=== PATIENT | female | born 1995 | race American Indian/Alaskan Native ===

== ENCOUNTER 2017-01-10 17:08 | Emergency (ER) | payer BC, OTHER ==
[2017-01-10] MEDS ORDERED: Silver Sulfadiazine 1% Crm 50 GM Tube TOP ONE (17:32)
[2017-01-10 17:33] VITALS: BP 138/73
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
== END 2017-01-10 18:25 | disposition home or self-care (01) ==
LOC: MW.ED 17:08
DX: L55.1 Sunburn of second degree (principal); E03.9 Hypothyroidism, unspecified; Z79.899 Other long term (current) drug therapy; Z98.890 Other specified postprocedural states
CPT/HCPCS: 99282; A9270

== ENCOUNTER 2017-04-04 19:31 | Inpatient (IN) | payer BC, OTHER ==
[2017-04-04] MEDS ORDERED: Nalbuphine 10 MG/1 ML Vial IVPUSH PRN (19:49)
[2017-04-04] MEDS ORDERED: Water For Irrigation,Sterile 1,000 ML Container IRR PRN (19:49)
[2017-04-04] MEDS ORDERED: Sodium Chloride 0.9% 2.5 ML Syringe FLUSH PRN (19:49)
[2017-04-04] MEDS ORDERED: Carboprost Tromethamine 250 MCG/1 ML Amp IM PRN (19:49)
[2017-04-04] MEDS ORDERED: Sodium Chloride 0.9% 10 ML Syringe FLUSH PRN (19:49)
[2017-04-04] MEDS ORDERED: Methylergonovine 0.2 MG/1 ML Amp IM PRN (19:49)
[2017-04-04] MEDS ORDERED: Terbutaline 1 MG/ML SDV SUBCUT PRN (19:49)
[2017-04-04] MEDS ORDERED: Misoprostol 200 MCG Tab PO PRN (19:49)
[2017-04-04] MEDS ORDERED: Lidocaine 1% 50 ML MDV INJECT PRN (19:49)
[2017-04-04] MEDS ORDERED: Oxytocin/Lactated Ringers 30 UNIT/500 ML BAG IV SCH ×2 (20:00)
[2017-04-04] MEDS: Lactated Ringers 1,000 ML IV SCH (20:28)
[2017-04-04] MEDS ORDERED: Misoprostol 25 MCG (1/4 of 100 MCG) Tab VAG SCH (20:30)
[2017-04-05] MEDS: Lactated Ringers 1,000 ML IV SCH (03:05)
[2017-04-05] MEDS: Misoprostol 25 MCG (1/4 of 100 MCG) Tab VAG SCH ×4 (03:31→23:01)
[2017-04-06] MEDS: Butorphanol 1 MG/ML SDV IVPUSH PRN ×2 (01:13→02:22)
--- NOTE | 2017-04-06 02:41 | PCM.PREANE ---
Preanesthetic Assessment - Anesthesia/Transfusion/Family Hx Anesthesia History: Prior Anesthesia Without Reaction Transfusion History: No Prior Transfusion(s) - Review of Systems General: No Symptoms Pulmonary: No Symptoms Cardiovascular: No Symptoms Gastrointestinal: No Symptoms Neurological: No Symptoms Other: Reports: None - Physical Assessment Pulse: 64 O2 Sat by Pulse Oximetry: 99 Respiratory Rate: 20 Blood Pressure: 128/73 Height: 5 ft 1 in Weight: 78.471 kg ASA Class: 2 Mental Status: Alert & Oriented x3 Airway Class: Mallampati = 2 Dentition: Reports: Normal Dentition Thyro-Mental Finger Breadths: 3 Mouth Opening Finger Breadths: 3 ROM/Head Extension: Full Lungs: Clear to Auscultation, Normal Respiratory Effort Cardiovascular: Regular Rate, Regular Rhythm - Lab Values: Laboratory Last Values WBC 12.35 K/uL (4.0-11.0) H 04/04/17 20:14 RBC 3.91 M/uL (4.30-5.90) L 04/04/17 20:14 Hgb 10.9 g/dL (12.0-16.0) L 04/04/17 20:14 Hct 33.2 % (36.0-46.0) L 04/04/17 20:14 MCV 84.9 fL (80.0-98.0) 04/04/17 20:14 MCH 27.9 pg (27.0-32.0) 04/04/17 20:14 MCHC 32.8 g/dL (31.0-37.0) 04/04/17 20:14 RDW Std Deviation 42.5 fl (28.0-62.0) 04/04/17 20:14 RDW Coeff of Mynor 14 % (11.0-15.0) 04/04/17 20:14 Plt Count 253 K/uL (150-400) 04/04/17 20:14 MPV 9.70 fL (7.40-12.00) 04/04/17 20:14 Nucleated RBC % 0.0 /100WBC 04/04/17 20:14 Nucleated RBCs # 0 K/uL 04/04/17 20:14 Blood Type A POSITIVE 04/04/17 20:14 Antibody Screen NEGATIVE 04/04/17 20:14 - Allergies Allergies/Adverse Reactions: Allergies Allergy/AdvReac Type Severity Reaction Status Date / Time No Known Allergies Allergy Verified 04/04/17 22:39 - Acknowledgements Anesthesia Type Planned: Epidural Pt an Appropriate Candidate for the Planned Anesthesia: Yes Alternatives and Risks of Anesthesia Discussed w Pt/Guardian: Yes Pt/Guardian Understands and Agrees with Anesthesia Plan: Yes PreAnesthesia Questionnaire HEENT 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: None Cardiovascular 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: None Respiratory 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: None Gastrointestinal 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: GERD Genitourinary 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: None [employer] 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: : 1 Para: 0 LMP (Approximate): Musculoskeletal 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: None Neurological 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: None Psychiatric 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: None Endocrine/Metabolic 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: Hypothyroidism, Obesity/BMI 30+ Hematologic 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: Anemia Immunologic 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: None Oncologic (Cancer) 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: None Dermatologic 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: None - Infectious Disease History Infectious Disease 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: None - Past Surgical History HEENT Surgical 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: Tonsillectomy, Other (See Below) Other HEENT Surgeries/Procedures: wisdom teeth removal Musculoskeletal Surgical 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: Other (See Below) Other Musculoskeletal Surgeries/Procedures:: ganglion cyst removal right wrist - SUBSTANCE USE Smoking Status *Q: Never Smoker Second Hand Smoke Exposure: No Days Per Week of Alcohol Use: 0 Recreational Drug Use History: No - HOME MEDS Home Medications: Home Meds Levothyroxine [Synthroid] 1 tab PO DAILY 08/12/14 [History] Vit #108/Iron/FA [ One Tablet] 1 tab PO DAILY 09/29/16 [History ] - CURRENT (IN HOUSE) MEDS Current Meds: Current Medications Butorphanol Tartrate (Stadol) 1 mg IVPUSH Q1H PRN PRN Reason: Pain Last Admin: 04/06/17 02:22 Dose: 1 mg Carboprost Tromethamine (Hemabate Ds) 250 mcg IM ASDIRECTED PRN PRN Reason: Post Hemorrhage Lactated Ringer's (Ringers, Lactated) 1,000 mls @ 150 mls/hr IV ASDIRECTED DAR Last Admin: 04/05/17 03:05 Dose: 150 mls/hr Oxytocin/Lactated Ringer's (Pitocin In Lr 30 Units/500 Ml) 30 unit in 500 mls @ 2 mls/hr IV TITRATE DAR; 2 MUNITS/MIN PRN Reason: Protocol Lidocaine HCl (Xylocaine 1%) 50 ml INJECT .ONCE PRN PRN Reason: Laceration repair Methylergonovine Maleate (Methergine) 0.2 mg IM ASDIRECTED PRN PRN Reason: Post Hemorrhage Misoprostol (Cytotec) 200 mcg PO .ONCE PRN PRN Reason: Post Hemorrhage Misoprostol (Cytotec) 25 mcg VAG .ONCE DAR Last Admin: 04/04/17 20:36 Dose: 25 mcg Misoprostol (Cytotec) 25 mcg VAG Q6H DAR Stop: 04/06/17 20:31 Last Admin: 04/05/17 23:01 Dose: 25 mcg Sodium Chloride (Saline Flush) 10 ml FLUSH ASDIRECTED PRN PRN Reason: Keep Vein Open Sodium Chloride (Saline Flush) 2.5 ml FLUSH ASDIRECTED PRN PRN Reason: Keep Vein Open Sterile Water (Sterile Water For Irrigation) 1,000 ml IRR ASDIRECTED PRN PRN Reason: delivery Terbutaline Sulfate (Brethine) 0.25 mg SUBCUT ASDIRECTED PRN PRN Reason: Tacysystole Discontinued Medications Oxytocin/Lactated Ringer's (Pitocin In Lr 30 Units/500 Ml) 30 unit in 500 mls @ 2 mls/hr IV TITRATE DAR; 2 MUNITS/MIN PRN Reason: Protocol Stop: 04/05/17 19:59 Nalbuphine HCl (Nubain) 10 mg IVPUSH Q1H PRN PRN Reason: Pain (severe 7-10) Stop: 04/04/17 21:50
[2017-04-06] MEDS: Lactated Ringers 1,000 ML IV SCH ×5 (02:45→17:13)
[2017-04-06] MEDS ORDERED: Ropivacaine HCl/PF 100 ML ONE ×3 (03:08→20:21)
[2017-04-06] MEDS ORDERED: fentaNYL 100 MCG/2 ML SDV ONE (03:08)
[2017-04-06] MEDS: Misoprostol 25 MCG (1/4 of 100 MCG) Tab VAG SCH (04:07)
[2017-04-06] MEDS: Ondansetron 4 MG/2 ML SDV IVPUSH PRN ×2 (10:52→15:34)
[2017-04-06] MEDS ORDERED: Ampicillin 2 GM in Sodium Chloride 0.9% 100 ML IV ONE (21:28)
[2017-04-06] MEDS ORDERED: Acetaminophen 500 MG Tab PO ONE (21:28)
[2017-04-06] MEDS ORDERED: Ampicillin 1 GM in Sodium Chloride 0.9% 50 ML IV SCH (21:30)
[2017-04-07] MEDS ORDERED: Lidocaine 2% 5 ML SDV ONE (01:20)
[2017-04-07] MEDS ORDERED: ceFAZolin 1 GM Vial ONE (01:22)
[2017-04-07] MEDS ORDERED: Citric Acid/Sodium Citrate Solution 30 ML Cup PO ONE (01:26)
[2017-04-07] MEDS ORDERED: Citric Acid/Sodium Citrate Solution 30 ML Cup ONE (01:31)
[2017-04-07] MEDS ORDERED: Oxytocin 10 Units/1 ML SDV ONE ×2 (01:51→02:25)
[2017-04-07] MEDS ORDERED: Ondansetron 4 MG/2 ML SDV ONE (01:52)
[2017-04-07] MEDS ORDERED: Morphine PF 10 MG/10 ML SDV ONE (01:59)
[2017-04-07] MEDS ORDERED: fentaNYL 100 MCG/2 ML SDV ONE (02:08)
[2017-04-07] MEDS ORDERED: Octyl 2-Cyanoacrylate 1 Tube ONE (02:17)
--- NOTE | 2017-04-07 02:37 | PCM.OPNOTE ---
- General Post-Op/Procedure Note Date of Surgery/Procedure: 04/07/17 Operative Procedure(s): primary low transverse Findings: Liveborn female weight 3180 grams, SAYDA, normal pelvis. Pre Op Diagnosis: 41 2/7 weeks, polyhydramnios, maternal fever, arrest of descent Post-Op Diagnosis: Same Anesthesia Technique: Epidural Primary Surgeon: Darlene Monroe Anesthesia Provider: Dario Gallegos [employer] Builder: Arron Gongora Pathology: placenta to pathology EBL in mLs: 600 Complications: None known Condition: Good
[2017-04-07] MEDS ORDERED: diphenhydrAMINE 50 MG/ML SDV IVPUSH PRN (02:42)
[2017-04-07] MEDS ORDERED: Ondansetron 4 MG/2 ML SDV IV PRN (02:42)
[2017-04-07] MEDS ORDERED: Bisacodyl 10 MG Supp RECTAL PRN (02:42)
[2017-04-07] MEDS ORDERED: Lanolin 100% Cream 7 GM Tube TOP PRN (02:42)
[2017-04-07] MEDS: Ketorolac 30 MG/ML SDV IVPUSH SCH ×4 (03:10→21:16)
--- NOTE | 2017-04-07 03:18 | PCM.POSTAN ---
POST ANESTHESIA ASSESSMENT - MENTAL STATUS Mental Status: Alert - RESPIRATORY Respiratory Status: Respiratory Rate WNL, Airway Patent, O2 Saturation Stable - CARDIOVASCULAR CV Status: Pulse Rate WNL, Blood Pressure Stable - GASTROINTESTINAL GI Status: No Symptoms - PAIN Pain Score: 5 (Pt states this is tolerable) - POST OP HYDRATION Hydration Status: Adequate & Stable
[2017-04-07] MEDS: Lactated Ringers 1,000 ML IV SCH ×2 (04:32→12:33)
[2017-04-07 05:46] LABS: CHLORIDE,CL 111 mmol/L (98-110); SODIUM,NA 137 mmol/L (136-146)
--- NOTE | 2017-04-07 05:48 | PCM48HPAN ---
Post Anesthesia Note - EVALUATION WITHIN 48HRS OF ANESTHETIC Vital Signs in Normal Range: Yes Patient Participated in Evaluation: Yes Respiratory Function Stable: Yes Airway Patent: Yes Cardiovascular Function Stable: Yes Hydration Status Stable: Yes Pain Control Satisfactory: Yes Nausea and Vomiting Control Satisfactory: Yes Mental Status Recovered: Yes - COMMENTS/OBSERVATIONS Free Text/Narrative:: Baby doing well.
--- NOTE | 2017-04-07 06:21 | OR ---
SURGEON: Darlene Monroe M.D. DATE OF PROCEDURE: 04-07-17 PREOPERATIVE DIAGNOSES: 1. A 41 and 1/7th week intrauterine . 2. Polyhydramnios. 3. Decreased movement. 4. Arrest of descent in the second stage of labor. 5. Maternal fever. POSTOPERATIVE DIAGNOSES: 1. A 41 and 1/7th week intrauterine . 2. Polyhydramnios. 3. Decreased movement. 4. Arrest of descent in the second stage of labor. PROCEDURES PERFORMED: Primary low transverse section. ANESTHESIA: Epidural. ESTIMATED BLOOD LOSS: 600 mL. FLUIDS: 2000 mL of crystalloid. FINDINGS: A live-born female with Apgars of one, three, and eight, weighing 3180 g. Placenta appeared normal. The fetus was in the left occiput anterior position at the time of delivery. The pelvis appeared normal. COMPLICATIONS: None known. DISPOSITION: Stable to Recovery. to [facility]. BRIEF HISTORY: This is a 21-year-old female. She is G1, P0. She presented to Clinic on 04/04/2017 with a complaint of decreased movement. She was, at that point, 40 and 6/7th weeks' gestation. She had polyhydramnios. She had had negative TORCH titers. She had had pyelectasis, the baby had had pyelectasis earlier in the , but it had subsequently resolved. Biophysical profile on 04/04/2017 was 10/10, but with polyhydramnios present due to the decreased movement, her post-dates state, and the polyhydramnios, decision was made to proceed with induction of labor. At that time, she was fingertip 30%, -2 station. She was admitted to Labor and Delivery. She had category 1 heart tones. She received multiple doses of Cytotec as well as balloon placement of the cervix. By the morning of 04/06/2017, she was 3 cm to 4 cm dilated. She had artificial rupture of membranes performed. She was started on Pitocin. Intrauterine pressure catheter and internal monitor were placed. Throughout the day, she had episodes of category 1 with episodes of category 2 heart tones, which resolved with discontinuing the Pitocin. The fetus tolerated the Pitocin well. Following this, by 6 p.m., she was 9 cm dilated. She had received an epidural for pain control. However, she had an episode of category 2 heart tones. Therefore, the Pitocin was discontinued, and re-started after 30 minutes of a category 1 strip. By 10 p.m., the cervix was reducible, and she was allowed to begin pushing. Shortly prior to this time, she had developed a fever of 101.6. She was started on ampicillin and gentamicin. Throughout pushing, she had category 1 heart tones alternating with category 2 heart tones. She had an episode of recurrent late decelerations. The Pitocin was discontinued and slowly re-started. heart tones were in the 150s with moderate variability. I discussed options for the patient, and at this point, she was at +2 and pushing to a +3 station in left occiput anterior position with category 1 heart tones with the Pitocin off. Option of continuing to push versus proceeding with delivery as she has pushed for a total of 3 hours were discussed with risks of delivery including bleeding, infection, injury to bowel or bladder or blood vessels or ureters or other organs, risk of thromboembolic event, and risks of anesthesia. Understanding all these risks, she did desire to proceed with a primary low transverse section. DESCRIPTION OF PROCEDURE: Upon arrival in the OR suite, heart tones were 150 with moderate variability With the patient in left tilt position under adequate epidural analgesia, the abdomen was prepped with chlorhexidine and draped in the usual fashion for abdominal surgery. SCDs were in place. Martinez catheter had been placed, and an appropriate time-out was held. As she had already received gentamicin and ampicillin, her second dose of ampicillin was given at the onset of , and her antibiotics will be continued postoperatively due to the fever. After appropriate time-out was held, documentation of adequate analgesia was performed over the incision site. A transverse curvilinear incision was made to the skin with a scalpel, and extended through the subcutaneous tissue to the fascia, which was scored transversely in the midline. The fascial incision was extended laterally using curved Alanis scissors. The fascia was elevated from the underlying rectus muscle using sharp and blunt dissection. The rectus muscles were bluntly in the midline. A finger was used to enter the peritoneal cavity. The incision was extended using blunt dissection. The Emerson O retractor was placed. The visceral peritoneum over the lower uterine segment was incised to develop an adequate bladder flap. A transverse curvilinear incision was made over the lower uterine segment. A finger was used to enter the amniotic cavity. Terminal meconium was noted. The head was delivered via the uterine incision, and with subsequent delivery, the infant's shoulders and body without any difficulty. The had poor tone at the time of delivery and no respiratory effort. Therefore, the cord was quickly clamped and cut, and handed to Dr. Snider, who was in attendance at delivery. The was a liveborn female with Apgars of one, three, and eight, weighing 3150 g. Cord blood was collected for cord ABGs as well as routine cord blood sampling. The placenta was removed by manual extraction. It was sent to Pathology. The uterus was cleaned with a dry laparotomy tape. The uterine incision was closed with a running lock suture of 0 Polysorb. The patient had significant peritoneal sensation. Therefore, I was unable to get aggressive fundal massage internally of the uterus. Tubes and ovaries did appear normal. After the uterine incision had been closed with a running lock suture followed by an imbricating layer, the uterine incision was inspected and was hemostatic. A single [id number] was placed in the midline for complete hemostasis. This being completed, the rectus muscle and peritoneum were loosely approximated in the midline using a running mattress suture of 0 Polysorb. The posterior aspect of the fascia was inspected, and areas of bleeding that were noted were cauterized. WOUND CLOSURE: The fascial incision was closed with a running suture of 0 Polysorb. Subcutaneous tissue was irrigated. Any areas of bleeding that were noted were cauterized. The skin was closed with a subcuticular suture of 3-0 Polysorb followed by skin glue. After the wound had been dressed, aggressive fundal massage and bimanual massage were performed with approximately 150 mL of clot expressed. Following this, the uterine fundus was firm. COUNT RESULTS: Final sponge, needle, and instrument counts were reported as correct. POSTOPERATIVE CONDITION: There were no known complications. The infant is in [facility] in good condition. Mother remains in Recovery in good condition. DILLON JEFFREY /[id number] NICOL
[2017-04-07] MEDS: Docusate Sodium 100 MG Cap PO SCH (10:11)
[2017-04-07] MEDS ORDERED: Lactated Ringers 500 ML IV ONE (12:30)
[2017-04-07] MEDS: Ampicillin 1 GM in Sodium Chloride 0.9% 50 ML IV SCH ×3 (14:26→22:01)
[2017-04-07] MEDS ORDERED: D5 1/2 NS w/ 20 mEq/L KCl 1,000 ML IV SCH (18:45)
[2017-04-08] MEDS: Ampicillin 1 GM in Sodium Chloride 0.9% 50 ML IV SCH (02:05)
[2017-04-08] MEDS: Ketorolac 30 MG/ML SDV IVPUSH SCH (03:01)
[2017-04-08 06:21] LABS: CHLORIDE,CL 112 mmol/L (98-110); SODIUM,NA 139 mmol/L (136-146)
--- NOTE | 2017-04-08 08:07 | PCM.PNPP ---
<Trina Adams - Last Filed: 04/08/17 08:13> - General Info Date of Service: 04/08/17 Functional Status: Reports: Pain Controlled, Tolerating Diet, Ambulating, Urinating - Review of Systems General: Denies: Fever, Weakness, Fatigue Pulmonary: Denies: Shortness of Breath, Pleuritic Chest Pain, Cough Cardiovascular: Denies: Chest Pain, Palpitations, Dyspnea on Exertion Gastrointestinal: Denies: Abdominal Pain Genitourinary: Denies: Dysuria Psychiatric: Reports: No Symptoms - General Info Date of Service: 04/08/17 - Patient Data Vital Signs - Most Recent: Last Vital Signs Temp 36.6 C 04/08/17 05:00 Pulse 118 H 04/08/17 05:00 Resp 16 04/08/17 05:00 BP 124/75 04/08/17 05:00 Pulse Ox 97 04/08/17 05:00 Weight - Most Recent: 78.471 kg I&O - Last 24 Hours: Intake & Output 04/07/17 04/08/17 04/08/17 22:59 06:59 14:59 Output Total 600 Balance -600 Lab Results - Last 24 Hours: Laboratory Results - last 24 hr 04/08/17 04/08/17 Range/Units 05:53 05:53 WBC 17.85 H (4.0-11.0) K/uL RBC 2.69 L (4.30-5.90) M/uL Hgb 7.6 L (12.0-16.0) g/dL Hct 22.6 L (36.0-46.0) % MCV 84.0 (80.0-98.0) fL MCH 28.3 (27.0-32.0) pg MCHC 33.6 (31.0-37.0) g/dL RDW Std Deviation 43.2 (28.0-62.0) fl RDW Coeff of Mynor 14 (11.0-15.0) % Plt Count 214 (150-400) K/uL MPV 9.10 (7.40-12.00) fL Neut % (Auto) 76.9 (48.0-80.0) % Lymph % (Auto) 13.8 L (16.0-40.0) % Dukes % (Auto) 8.5 (0.0-15.0) % Eos % (Auto) 0.7 (0.0-7.0) % Baso % (Auto) 0.1 (0.0-1.5) % Neut # (Auto) 13.7 H (1.4-5.7) K/uL Lymph # (Auto) 2.5 H (0.6-2.4) K/uL Dukes # (Auto) 1.5 H (0.0-0.8) K/uL Eos # (Auto) 0.1 (0.0-0.7) K/uL Baso # (Auto) 0.0 (0.0-0.1) K/uL Nucleated RBC % 0.0 /100WBC Nucleated RBCs # 0 K/uL Sodium 139 (136-146) mmol/L Potassium 3.8 (3.5-5.1) mmol/L Chloride 112 H (98-110) mmol/L Carbon Dioxide 20 L (21-31) mmol/L BUN 9 (6.0-23.0) mg/dL Creatinine 0.7 (0.6-1.5) mg/dL Est Cr Clr Drug Dosing 97.54 mL/min Estimated GFR (MDRD) > 60.0 ml/min Glucose 89 (60-110) mg/dL Calcium 7.8 L (8.8-10.8) mg/dL Med Orders - Current: Current Medications Bisacodyl (Dulcolax) 10 mg RECTAL .ONCE PRN PRN Reason: Constipation Diphenhydramine HCl (Benadryl) 25 mg IVPUSH Q6H PRN PRN Reason: Itching or Nausea Docusate Sodium (Colace) 100 mg PO BID [facility] Last Admin: 04/07/17 10:11 Dose: 100 mg Emollient Ointment (Lansinoh Hpa) 0 gm TOP ASDIRECTED PRN PRN Reason: Sore Nipples Last Admin: 04/08/17 00:32 Dose: 7 gm Lactated Ringer's (Ringers, Lactated) 1,000 mls @ 150 mls/hr IV ASDIRECTED [facility] Last Admin: 04/06/17 17:13 Dose: 999 mls/hr Lactated Ringer's (Ringers, Lactated) 1,000 mls @ 125 mls/hr IV ASDIRECTED [facility] Last Admin: 04/07/17 12:33 Dose: 125 mls/hr Potassium Chloride/Dextrose/Sod Cl (D5 1/2 Ns W/ 20 Meq/L Kcl) 1,000 mls @ 125 mls/hr IV ASDIRECTED [facility] Last Admin: 04/08/17 02:06 Dose: 125 mls/hr Ibuprofen (Motrin) 800 mg PO Q8H PRN PRN Reason: mild pain or fever Methylergonovine Maleate (Methergine) 0.2 mg IM ASDIRECTED PRN PRN Reason: Post Hemorrhage Misoprostol (Cytotec) 200 mcg PO .ONCE PRN PRN Reason: Post Hemorrhage Ondansetron HCl (Zofran) 4 mg IVPUSH Q4H PRN PRN Reason: Nausea Last Admin: 04/06/17 15:34 Dose: 4 mg Ondansetron HCl (Zofran) 4 mg IV Q4H PRN PRN Reason: Nausea/Vomiting Oxycodone/Acetaminophen (Percocet 325-5 Mg) 1 - 2 tab PO Q4H PRN PRN Reason: Pain (moderate 4-6) Discontinued Medications Acetaminophen (Tylenol Extra Strength) 1,000 mg PO ONETIME ONE Stop: 04/06/17 21:29 Last Admin: 04/06/17 21:40 Dose: 1,000 mg Butorphanol Tartrate (Stadol) 1 mg IVPUSH Q1H PRN PRN Reason: Pain Last Admin: 04/06/17 01:13 Dose: 1 mg Carboprost Tromethamine (Hemabate Ds) 250 mcg IM ASDIRECTED PRN PRN Reason: Post Hemorrhage Cefazolin Sodium (Ancef) Confirm Administered Dose 2 gm .ROUTE .STK-MED ONE Stop: 04/07/17 01:23 Citric Acid/Sodium Citrate (Bicitra Solution) 30 ml PO ONETIME ONE Stop: 04/07/17 01:27 Citric Acid/Sodium Citrate (Bicitra Solution) Confirm Administered Dose 30 ml .ROUTE .STK-MED ONE Stop: 04/07/17 01:32 Fentanyl (Sublimaze) Confirm Administered Dose 100 mcg .ROUTE .STK-MED ONE Stop: 04/06/17 03:09 Last Admin: 04/06/17 04:07 Dose: Not Given Fentanyl (Sublimaze) Confirm Administered Dose 100 mcg .ROUTE .STK-MED ONE Stop: 04/07/17 02:09 Oxytocin/Lactated Ringer's (Pitocin In Lr 30 Units/500 Ml) 30 unit in 500 mls @ 2 mls/hr IV TITRATE DAR; 2 MUNITS/MIN PRN Reason: Protocol Stop: 04/05/17 19:59 Oxytocin/Lactated Ringer's (Pitocin In Lr 30 Units/500 Ml) 30 unit in 500 mls @ 2 mls/hr IV TITRATE DAR; 2 MUNITS/MIN PRN Reason: Protocol Last Titration: 04/07/17 01:06 Dose: 0 munits/min, 0 mls/hr Ropivacaine (Naropin 0.2%) Confirm Administered Dose 100 mls @ as directed .ROUTE .[facility]-MED ONE Stop: 04/06/17 03:09 Last Admin: 04/06/17 04:07 Dose: Not Given Ropivacaine (Naropin 0.2%) Confirm Administered Dose 100 mls @ as directed .ROUTE .[facility] ONE Stop: 04/06/17 13:50 Ropivacaine (Naropin 0.2%) Confirm Administered Dose 100 mls @ as directed .ROUTE .[facility] ONE Stop: 04/06/17 20:22 Ampicillin Sodium 2 gm/ Sodium (Chloride) 100 mls @ 200 mls/hr IV ONETIME ONE Stop: 04/06/17 21:57 Last Admin: 04/06/17 21:50 Dose: 200 mls/hr Ampicillin Sodium 1 gm/ Sodium (Chloride) 50 mls @ 100 mls/hr IV Q4H [facility] Last Admin: 04/07/17 10:15 Dose: 100 mls/hr Gentamicin Sulfate 80 mg/ (Sodium Chloride) 52 mls @ 104 mls/hr IV Q8H [facility] Last Admin: 04/06/17 22:23 Dose: 104 mls/hr Ampicillin Sodium 1 gm/ Sodium (Chloride) 50 mls @ 100 mls/hr IV Q4H [facility] Stop: 04/08/17 02:00 Last Admin: 04/08/17 02:05 Dose: 100 mls/hr Gentamicin Sulfate 80 mg/ (Sodium Chloride) 52 mls @ 100 mls/hr IV Q8H [facility] Stop: 04/08/17 05:00 Last Admin: 04/08/17 05:06 Dose: 100 mls/hr Lactated Ringer's (Ringers, Lactated) 500 mls @ 999 mls/hr IV .[facility]OL[facility] ONE Stop: 04/07/17 13:00 Ketorolac Tromethamine (Toradol) 30 mg IVPUSH Q6H [facility] Stop: 04/08/17 02:46 Last Admin: 04/08/17 03:01 Dose: 30 mg Lidocaine (Xylocaine-Mpf 2%) Confirm Administered Dose 20 ml .ROUTE .STK-MED ONE Stop: 04/07/17 01:21 Lidocaine HCl (Xylocaine 1%) 50 ml INJECT .ONCE PRN PRN Reason: Laceration repair Misoprostol (Cytotec) 25 mcg VAG .ONCE DAR Last Admin: 04/04/17 20:36 Dose: 25 mcg Misoprostol (Cytotec) 25 mcg VAG Q6H [facility] Stop: 04/06/17 20:31 Last Admin: 04/06/17 04:07 Dose: Not Given Morphine Sulfate (Duramorph Pf) Confirm Administered Dose 10 mg .ROUTE .STK-MED ONE Stop: 04/07/17 02:00 Nalbuphine HCl (Nubain) 10 mg IVPUSH Q1H PRN PRN Reason: Pain (severe 7-10) Stop: 04/04/17 21:50 Octyl Cyanoacrylate (Dermabond Advance) Confirm Administered Dose 1 applic .ROUTE .STK-MED ONE Stop: 04/07/17 02:18 Ondansetron HCl (Zofran) Confirm Administered Dose 4 mg .ROUTE .STK-MED ONE Stop: 04/07/17 01:53 Oxytocin (Pitocin) Confirm Administered Dose 20 unit .ROUTE .STK-MED ONE Stop: 04/07/17 01:52 Oxytocin (Pitocin) Confirm Administered Dose 10 unit .ROUTE .STK-MED ONE Stop: 04/07/17 02:26 Sodium Chloride (Saline Flush) 10 ml FLUSH ASDIRECTED PRN PRN Reason: Keep Vein Open Sodium Chloride (Saline Flush) 2.5 ml FLUSH ASDIRECTED PRN PRN Reason: Keep Vein Open Sterile Water (Sterile Water For Irrigation) 1,000 ml IRR ASDIRECTED PRN PRN Reason: delivery Terbutaline Sulfate (Brethine) 0.25 mg SUBCUT ASDIRECTED PRN PRN Reason: Tacysystole - Infant Interaction Disposition, : [place] to Nursery Feeding: Attempted ; Nursed Fair/Poor Support Person: Mother, Significant Other - Recovery Exam Fundal Tone: Firm Fundal Level: At Umbilicus Fundal Placement: Midline Lochia Amount: Scant Lochia Color: Rubra/Red Perineum Description: Intact, Minimal Bruising/Swelling Episiotomy/Laceration: None Bladder Status: Voiding Urinary Elimination: Voided - Exam General: Alert, Oriented Neck: Supple Lungs: Clear to Auscultation, Normal Respiratory Effort Cardiovascular: Regular Rate, Regular Rhythm GI/Abdominal Exam: Normal Bowel Sounds, Soft, Non-Tender Psy/Mental Status: Alert - Problem List & Annotations (1) Vaginal delivery SNOMED Code(s): 962867456 Code(s): O80 - ENCOUNTER FOR FULL-TERM UNCOMPLICATED DELIVERY Status: Acute Current Visit: Yes - Problem List Review Problem List Initiated/Reviewed/Updated: Yes - Assessment Assessment:: POD #1 from PLT due to arrest of decent. Minimal pain and lochia. Currently on antibiotics for maternal fever. WBC has decreased from 24,660 to 17,850. Vital signs are stable. - Plan Plan:: Continue routine post-op cares. Encouraged to ambulate halls. Work on breast feeding today. Will start Iron supplementation for anemia. <Hue Mensah - Last Filed: 04/08/17 08:41> - Patient Data Vital Signs - Most Recent: Last Vital Signs Temp 36.6 C 04/08/17 05:00 Pulse 118 H 04/08/17 05:00 Resp 16 04/08/17 05:00 BP 124/75 04/08/17 05:00 Pulse Ox 97 04/08/17 05:00 I&O - Last 24 Hours: Intake & Output 04/07/17 04/08/17 04/08/17 22:59 06:59 14:59 Output Total 600 Balance -600 Lab Results - Last 24 Hours: Laboratory Results - last 24 hr 04/08/17 04/08/17 Range/Units 05:53 05:53 WBC 17.85 H (4.0-11.0) K/uL RBC 2.69 L (4.30-5.90) M/uL Hgb 7.6 L (12.0-16.0) g/dL Hct 22.6 L (36.0-46.0) % MCV 84.0 (80.0-98.0) fL MCH 28.3 (27.0-32.0) pg MCHC 33.6 (31.0-37.0) g/dL RDW Std Deviation 43.2 (28.0-62.0) fl RDW Coeff of Mynor 14 (11.0-15.0) % Plt Count 214 (150-400) K/uL MPV 9.10 (7.40-12.00) fL Neut % (Auto) 76.9 (48.0-80.0) % Lymph % (Auto) 13.8 L (16.0-40.0) % Dukes % (Auto) 8.5 (0.0-15.0) % Eos % (Auto) 0.7 (0.0-7.0) % Baso % (Auto) 0.1 (0.0-1.5) % Neut # (Auto) 13.7 H (1.4-5.7) K/uL Lymph # (Auto) 2.5 H (0.6-2.4) K/uL Dukes # (Auto) 1.5 H (0.0-0.8) K/uL Eos # (Auto) 0.1 (0.0-0.7) K/uL Baso # (Auto) 0.0 (0.0-0.1) K/uL Nucleated RBC % 0.0 /100WBC Nucleated RBCs # 0 K/uL Sodium 139 (136-146) mmol/L Potassium 3.8 (3.5-5.1) mmol/L Chloride 112 H (98-110) mmol/L Carbon Dioxide 20 L (21-31) mmol/L BUN 9 (6.0-23.0) mg/dL Creatinine 0.7 (0.6-1.5) mg/dL Est Cr Clr Drug Dosing 97.54 mL/min Estimated GFR (MDRD) > 60.0 ml/min Glucose 89 (60-110) mg/dL Calcium 7.8 L (8.8-10.8) mg/dL Med Orders - Current: Current Medications Bisacodyl (Dulcolax) 10 mg RECTAL .ONCE PRN PRN Reason: Constipation Diphenhydramine HCl (Benadryl) 25 mg IVPUSH Q6H PRN PRN Reason: Itching or Nausea Docusate Sodium (Colace) 100 mg PO BID [facility] Last Admin: 04/07/17 10:11 Dose: 100 mg Emollient Ointment (Lansinoh Hpa) 0 gm TOP ASDIRECTED PRN PRN Reason: Sore Nipples Last Admin: 04/08/17 00:32 Dose: 7 gm Lactated Ringer's (Ringers, Lactated) 1,000 mls @ 150 mls/hr IV ASDIRECTED [facility] Last Admin: 04/06/17 17:13 Dose: 999 mls/hr Lactated Ringer's (Ringers, Lactated) 1,000 mls @ 125 mls/hr IV ASDIRECTED [facility] Last Admin: 04/07/17 12:33 Dose: 125 mls/hr Potassium Chloride/Dextrose/Sod Cl (D5 1/2 Ns W/ 20 Meq/L Kcl) 1,000 mls @ 125 mls/hr IV ASDIRECTED [facility] Last Admin: 04/08/17 02:06 Dose: 125 mls/hr Ibuprofen (Motrin) 800 mg PO Q8H PRN PRN Reason: mild pain or fever Methylergonovine Maleate (Methergine) 0.2 mg IM ASDIRECTED PRN PRN Reason: Post Hemorrhage Misoprostol (Cytotec) 200 mcg PO .ONCE PRN PRN Reason: Post Hemorrhage Ondansetron HCl (Zofran) 4 mg IVPUSH Q4H PRN PRN Reason: Nausea Last Admin: 04/06/17 15:34 Dose: 4 mg Ondansetron HCl (Zofran) 4 mg IV Q4H PRN PRN Reason: Nausea/Vomiting Oxycodone/Acetaminophen (Percocet 325-5 Mg) 1 - 2 tab PO Q4H PRN PRN Reason: Pain (moderate 4-6) Discontinued Medications Acetaminophen (Tylenol Extra Strength) 1,000 mg PO ONETIME ONE Stop: 04/06/17 21:29 Last Admin: 04/06/17 21:40 Dose: 1,000 mg Butorphanol Tartrate (Stadol) 1 mg IVPUSH Q1H PRN PRN Reason: Pain Last Admin: 04/06/17 01:13 Dose: 1 mg Carboprost Tromethamine (Hemabate Ds) 250 mcg IM ASDIRECTED PRN PRN Reason: Post Hemorrhage Cefazolin Sodium (Ancef) Confirm Administered Dose 2 gm .ROUTE .STK-MED ONE Stop: 04/07/17 01:23 Citric Acid/Sodium Citrate (Bicitra Solution) 30 ml PO ONETIME ONE Stop: 04/07/17 01:27 Citric Acid/Sodium Citrate (Bicitra Solution) Confirm Administered Dose 30 ml .ROUTE .STK-MED ONE Stop: 04/07/17 01:32 Fentanyl (Sublimaze) Confirm Administered Dose 100 mcg .ROUTE .STK-MED ONE Stop: 04/06/17 03:09 Last Admin: 04/06/17 04:07 Dose: Not Given Fentanyl (Sublimaze) Confirm Administered Dose 100 mcg .ROUTE .ST-MED ONE Stop: 04/07/17 02:09 Oxytocin/Lactated Ringer's (Pitocin In Lr 30 Units/500 Ml) 30 unit in 500 mls @ 2 mls/hr IV TITRATE DAR; 2 MUNITS/MIN PRN Reason: Protocol Stop: 04/05/17 19:59 Oxytocin/Lactated Ringer's (Pitocin In Lr 30 Units/500 Ml) 30 unit in 500 mls @ 2 mls/hr IV TITRATE DAR; 2 MUNITS/MIN PRN Reason: Protocol Last Titration: 04/07/17 01:06 Dose: 0 munits/min, 0 mls/hr Ropivacaine (Naropin 0.2%) Confirm Administered Dose 100 mls @ as directed .ROUTE .ST-MED ONE Stop: 04/06/17 03:09 Last Admin: 04/06/17 04:07 Dose: Not Given Ropivacaine (Naropin 0.2%) Confirm Administered Dose 100 mls @ as directed .ROUTE .STK-MED ONE Stop: 04/06/17 13:50 Ropivacaine (Naropin 0.2%) Confirm Administered Dose 100 mls @ as directed .ROUTE .STK-MED ONE Stop: 04/06/17 20:22 Ampicillin Sodium 2 gm/ Sodium (Chloride) 100 mls @ 200 mls/hr IV ONETIME ONE Stop: 04/06/17 21:57 Last Admin: 04/06/17 21:50 Dose: 200 mls/hr Ampicillin Sodium 1 gm/ Sodium (Chloride) 50 mls @ 100 mls/hr IV Q4H [facility] Last Admin: 04/07/17 10:15 Dose: 100 mls/hr Gentamicin Sulfate 80 mg/ (Sodium Chloride) 52 mls @ 104 mls/hr IV Q8H [facility] Last Admin: 04/06/17 22:23 Dose: 104 mls/hr Ampicillin Sodium 1 gm/ Sodium (Chloride) 50 mls @ 100 mls/hr IV Q4H [facility] Stop: 04/08/17 02:00 Last Admin: 04/08/17 02:05 Dose: 100 mls/hr Gentamicin Sulfate 80 mg/ (Sodium Chloride) 52 mls @ 100 mls/hr IV Q8H [facility] Stop: 04/08/17 05:00 Last Admin: 04/08/17 05:06 Dose: 100 mls/hr Lactated Ringer's (Ringers, Lactated) 500 mls @ 999 mls/hr IV .[facility]OL[facility] ONE Stop: 04/07/17 13:00 Ketorolac Tromethamine (Toradol) 30 mg IVPUSH Q6H [facility] Stop: 04/08/17 02:46 Last Admin: 04/08/17 03:01 Dose: 30 mg Lidocaine (Xylocaine-Mpf 2%) Confirm Administered Dose 20 ml .ROUTE .STK-MED ONE Stop: 04/07/17 01:21 Lidocaine HCl (Xylocaine 1%) 50 ml INJECT .ONCE PRN PRN Reason: Laceration repair Misoprostol (Cytotec) 25 mcg VAG .ONCE [facility] Last Admin: 04/04/17 20:36 Dose: 25 mcg Misoprostol (Cytotec) 25 mcg VAG Q6H [facility] Stop: 04/06/17 20:31 Last Admin: 04/06/17 04:07 Dose: Not Given Morphine Sulfate (Duramorph Pf) Confirm Administered Dose 10 mg .ROUTE .STK-MED ONE Stop: 04/07/17 02:00 Nalbuphine HCl (Nubain) 10 mg IVPUSH Q1H PRN PRN Reason: Pain (severe 7-10) Stop: 04/04/17 21:50 Octyl Cyanoacrylate (Dermabond Advance) Confirm Administered Dose 1 applic .ROUTE .STK-MED ONE Stop: 04/07/17 02:18 Ondansetron HCl (Zofran) Confirm Administered Dose 4 mg .ROUTE .STK-MED ONE Stop: 04/07/17 01:53 Oxytocin (Pitocin) Confirm Administered Dose 20 unit .ROUTE .STK-MED ONE Stop: 04/07/17 01:52 Oxytocin (Pitocin) Confirm Administered Dose 10 unit .ROUTE .STK-MED ONE Stop: 04/07/17 02:26 Sodium Chloride (Saline Flush) 10 ml FLUSH ASDIRECTED PRN PRN Reason: Keep Vein Open Sodium Chloride (Saline Flush) 2.5 ml FLUSH ASDIRECTED PRN PRN Reason: Keep Vein Open Sterile Water (Sterile Water For Irrigation) 1,000 ml IRR ASDIRECTED PRN PRN Reason: delivery Terbutaline Sulfate (Brethine) 0.25 mg SUBCUT ASDIRECTED PRN PRN Reason: Tacysystole - My Orders Last 24 Hours: My Active Orders 04/07/17 18:45 D5 1/2 NS w/ 20 mEq/L KCl 1,000 ml IV ASDIRECTED - Plan Plan:: Patient seen and examined. Potassium is normalized today. Patient is afebrile. She is ambulating without orthostatic symptoms and has good urine output. She was anemic prior to surgery with hemoglobin 10.6 and seems to be tolerating well. Will continue to monitor. She agrees to ambulate halls today.
[2017-04-08] MEDS: Docusate Sodium 100 MG Cap PO SCH ×2 (09:20→21:00)
[2017-04-08] MEDS: Acetaminophen/oxyCODONE 325-5 MG Tab PO PRN ×3 (09:20→22:53)
[2017-04-08] MEDS: Ibuprofen 800 MG Tab PO PRN ×2 (09:59→17:18)
--- NOTE | 2017-04-08 21:24 | PCM.PN ---
- General Info Date of Service: 04/08/17 Admission Dx/Problem (Free Text): 21 yo now P1 s/p Primary Subjective Update: Patient seen at bedside , was informed that patient complained of passing a yellowish substance from the vagina Patient is s/p primary for arrest of dilatation, labor course complicated with Chorioamnionitis. last temp spike @ 04/06 38.7 was before delivery. patient was recieved antibiotics for 24hrs. Patient also noted to have a drop in H/H from 10.9/33.2 --> 7.7/22.6 . patient denies fatigue , dizziness , Shortness of breathe and palpation , denies headache RUQ pain BP ;- 120s-140s/ 60s- 70s Functional Status: Reports: Pain Controlled - Review of Systems General: Reports: No Symptoms HEENT: Reports: No Symptoms Pulmonary: Reports: No Symptoms Cardiovascular: Reports: No Symptoms Gastrointestinal: Reports: No Symptoms Genitourinary: Reports: No Symptoms Musculoskeletal: Reports: No Symptoms - Patient Data Vitals - Most Recent: Last Vital Signs Temp 36.5 C 04/08/17 21:13 Pulse 94 04/08/17 21:13 Resp 18 04/08/17 21:13 BP 152/76 H 04/08/17 21:13 Pulse Ox 100 04/08/17 21:13 Weight - Most Recent: 78.471 kg Lab Results Last 24 Hours: Laboratory Results - last 24 hr 04/08/17 04/08/17 Range/Units 05:53 05:53 WBC 17.85 H (4.0-11.0) K/uL RBC 2.69 L (4.30-5.90) M/uL Hgb 7.6 L (12.0-16.0) g/dL Hct 22.6 L (36.0-46.0) % MCV 84.0 (80.0-98.0) fL MCH 28.3 (27.0-32.0) pg MCHC 33.6 (31.0-37.0) g/dL RDW Std Deviation 43.2 (28.0-62.0) fl RDW Coeff of Mynor 14 (11.0-15.0) % Plt Count 214 (150-400) K/uL MPV 9.10 (7.40-12.00) fL Neut % (Auto) 76.9 (48.0-80.0) % Lymph % (Auto) 13.8 L (16.0-40.0) % [place] % (Auto) 8.5 (0.0-15.0) % Eos % (Auto) 0.7 (0.0-7.0) % Baso % (Auto) 0.1 (0.0-1.5) % Neut # (Auto) 13.7 H (1.4-5.7) K/uL Lymph # (Auto) 2.5 H (0.6-2.4) K/uL [place] # (Auto) 1.5 H (0.0-0.8) K/uL Eos # (Auto) 0.1 (0.0-0.7) K/uL Baso # (Auto) 0.0 (0.0-0.1) K/uL Nucleated RBC % 0.0 /100WBC Nucleated RBCs # 0 K/uL Sodium 139 (136-146) mmol/L Potassium 3.8 (3.5-5.1) mmol/L Chloride 112 H (98-110) mmol/L Carbon Dioxide 20 L (21-31) mmol/L BUN 9 (6.0-23.0) mg/dL Creatinine 0.7 (0.6-1.5) mg/dL Est Cr Clr Drug Dosing 97.54 mL/min Estimated GFR (MDRD) > 60.0 ml/min Glucose 89 (60-110) mg/dL Calcium 7.8 L (8.8-10.8) mg/dL Med Orders - Current: Current Medications Bisacodyl (Dulcolax) 10 mg RECTAL .ONCE PRN PRN Reason: Constipation Diphenhydramine HCl (Benadryl) 25 mg IVPUSH Q6H PRN PRN Reason: Itching or Nausea Docusate Sodium (Colace) 100 mg PO BID [facility] Last Admin: 04/08/17 21:00 Dose: 100 mg Emollient Ointment (Lansinoh Hpa) 0 gm TOP ASDIRECTED PRN PRN Reason: Sore Nipples Last Admin: 04/08/17 00:32 Dose: 7 gm Lactated Ringer's (Ringers, Lactated) 1,000 mls @ 150 mls/hr IV ASDIRECTED [facility] Last Admin: 04/06/17 17:13 Dose: 999 mls/hr Lactated Ringer's (Ringers, Lactated) 1,000 mls @ 125 mls/hr IV ASDIRECTED [facility] Last Admin: 04/07/17 12:33 Dose: 125 mls/hr Potassium Chloride/Dextrose/Sod Cl (D5 1/2 Ns W/ 20 Meq/L Kcl) 1,000 mls @ 125 mls/hr IV ASDIRECTED [facility] Last Admin: 04/08/17 02:06 Dose: 125 mls/hr Ibuprofen (Motrin) 800 mg PO Q8H PRN PRN Reason: mild pain or fever Last Admin: 04/08/17 17:18 Dose: 800 mg Methylergonovine Maleate (Methergine) 0.2 mg IM ASDIRECTED PRN PRN Reason: Post Hemorrhage Misoprostol (Cytotec) 200 mcg PO .ONCE PRN PRN Reason: Post Hemorrhage Ondansetron HCl (Zofran) 4 mg IVPUSH Q4H PRN PRN Reason: Nausea Last Admin: 04/06/17 15:34 Dose: 4 mg Ondansetron HCl (Zofran) 4 mg IV Q4H PRN PRN Reason: Nausea/Vomiting Oxycodone/Acetaminophen (Percocet 325-5 Mg) 1 - 2 tab PO Q4H PRN PRN Reason: Pain (moderate 4-6) Last Admin: 04/08/17 14:43 Dose: 2 tab Discontinued Medications Acetaminophen (Tylenol Extra Strength) 1,000 mg PO ONETIME ONE Stop: 04/06/17 21:29 Last Admin: 04/06/17 21:40 Dose: 1,000 mg Butorphanol Tartrate (Stadol) 1 mg IVPUSH Q1H PRN PRN Reason: Pain Last Admin: 04/06/17 01:13 Dose: 1 mg Carboprost Tromethamine (Hemabate Ds) 250 mcg IM ASDIRECTED PRN PRN Reason: Post Hemorrhage Cefazolin Sodium (Ancef) Confirm Administered Dose 2 gm .ROUTE .STK-MED ONE Stop: 04/07/17 01:23 Citric Acid/Sodium Citrate (Bicitra Solution) 30 ml PO ONETIME ONE Stop: 04/07/17 01:27 Citric Acid/Sodium Citrate (Bicitra Solution) Confirm Administered Dose 30 ml .ROUTE .[facility] ONE Stop: 04/07/17 01:32 Last Admin: 04/08/17 17:24 Dose: Not Given Fentanyl (Sublimaze) Confirm Administered Dose 100 mcg .ROUTE .[facility] ONE Stop: 04/06/17 03:09 Last Admin: 04/06/17 04:07 Dose: Not Given Fentanyl (Sublimaze) Confirm Administered Dose 100 mcg .ROUTE .[facility] ONE Stop: 04/07/17 02:09 Oxytocin/Lactated Ringer's (Pitocin In Lr 30 Units/500 Ml) 30 unit in 500 mls @ 2 mls/hr IV TITRATE DAR; 2 MUNITS/MIN PRN Reason: Protocol Stop: 04/05/17 19:59 Oxytocin/Lactated Ringer's (Pitocin In Lr 30 Units/500 Ml) 30 unit in 500 mls @ 2 mls/hr IV TITRATE DAR; 2 MUNITS/MIN PRN Reason: Protocol Last Titration: 04/07/17 01:06 Dose: 0 munits/min, 0 mls/hr Ropivacaine (Naropin 0.2%) Confirm Administered Dose 100 mls @ as directed .ROUTE .[facility] ONE Stop: 04/06/17 03:09 Last Admin: 04/06/17 04:07 Dose: Not Given Ropivacaine (Naropin 0.2%) Confirm Administered Dose 100 mls @ as directed .ROUTE .[facility] ONE Stop: 04/06/17 13:50 Ropivacaine (Naropin 0.2%) Confirm Administered Dose 100 mls @ as directed .ROUTE .[facility] ONE Stop: 04/06/17 20:22 Ampicillin Sodium 2 gm/ Sodium (Chloride) 100 mls @ 200 mls/hr IV ONETIME ONE Stop: 04/06/17 21:57 Last Admin: 04/06/17 21:50 Dose: 200 mls/hr Ampicillin Sodium 1 gm/ Sodium (Chloride) 50 mls @ 100 mls/hr IV Q4H [facility] Last Admin: 04/07/17 10:15 Dose: 100 mls/hr Gentamicin Sulfate 80 mg/ (Sodium Chloride) 52 mls @ 104 mls/hr IV Q8H [facility] Last Admin: 04/06/17 22:23 Dose: 104 mls/hr Ampicillin Sodium 1 gm/ Sodium (Chloride) 50 mls @ 100 mls/hr IV Q4H [facility] Stop: 04/08/17 02:00 Last Admin: 04/08/17 02:05 Dose: 100 mls/hr Gentamicin Sulfate 80 mg/ (Sodium Chloride) 52 mls @ 100 mls/hr IV Q8H [facility] Stop: 04/08/17 05:00 Last Admin: 04/08/17 05:06 Dose: 100 mls/hr Lactated Ringer's (Ringers, Lactated) 500 mls @ 999 mls/hr IV .BOLUS ONE Stop: 04/07/17 13:00 Last Admin: 04/08/17 17:29 Dose: Not Given Ketorolac Tromethamine (Toradol) 30 mg IVPUSH Q6H [facility] Stop: 04/08/17 02:46 Last Admin: 04/08/17 03:01 Dose: 30 mg Lidocaine (Xylocaine-Mpf 2%) Confirm Administered Dose 20 ml .ROUTE .STK-MED ONE Stop: 04/07/17 01:21 Lidocaine HCl (Xylocaine 1%) 50 ml INJECT .ONCE PRN PRN Reason: Laceration repair Misoprostol (Cytotec) 25 mcg VAG .ONCE DAR Last Admin: 04/04/17 20:36 Dose: 25 mcg Misoprostol (Cytotec) 25 mcg VAG Q6H [facility] Stop: 04/06/17 20:31 Last Admin: 04/06/17 04:07 Dose: Not Given Morphine Sulfate (Duramorph Pf) Confirm Administered Dose 10 mg .ROUTE .STK-MED ONE Stop: 04/07/17 02:00 Nalbuphine HCl (Nubain) 10 mg IVPUSH Q1H PRN PRN Reason: Pain (severe 7-10) Stop: 04/04/17 21:50 Octyl Cyanoacrylate (Dermabond Advance) Confirm Administered Dose 1 applic .ROUTE .STK-MED ONE Stop: 04/07/17 02:18 Ondansetron HCl (Zofran) Confirm Administered Dose 4 mg .ROUTE .STK-MED ONE Stop: 04/07/17 01:53 Oxytocin (Pitocin) Confirm Administered Dose 20 unit .ROUTE .STK-MED ONE Stop: 04/07/17 01:52 Oxytocin (Pitocin) Confirm Administered Dose 10 unit .ROUTE .STK-MED ONE Stop: 04/07/17 02:26 Sodium Chloride (Saline Flush) 10 ml FLUSH ASDIRECTED PRN PRN Reason: Keep Vein Open Sodium Chloride (Saline Flush) 2.5 ml FLUSH ASDIRECTED PRN PRN Reason: Keep Vein Open Sterile Water (Sterile Water For Irrigation) 1,000 ml IRR ASDIRECTED PRN PRN Reason: delivery Terbutaline Sulfate (Brethine) 0.25 mg SUBCUT ASDIRECTED PRN PRN Reason: Tacysystole - Exam General: Alert Lungs: Clear to Auscultation Cardiovascular: Regular Rate, Regular Rhythm GI/Abdominal Exam: Normal Bowel Sounds, Soft, Other (Pfannestiel skin incision c /d/i , Uterus is 18 week well contracted , non tender , minimal lochia ) - Problem List Review Problem List Initiated/Reviewed/Updated: Yes - Assessment Assessment:: POD #1 from [facility] due to arrest of decent. Minimal pain and lochia. Currently on antibiotics for maternal fever. WBC has decreased from 24,660 to 17,850. Vital signs are stable. - Plan Plan:: Continue regular diet Ambulation Pain control Will transfuse if patient has symptoms
[2017-04-09] MEDS: Ibuprofen 800 MG Tab PO PRN (04:20)
[2017-04-09 04:21] VITALS: BP 138/90
[2017-04-09] MEDS: Docusate Sodium 100 MG Cap PO SCH (09:46)
[2017-04-09] MEDS: Acetaminophen/oxyCODONE 325-5 MG Tab PO PRN (09:46)
--- NOTE | 2017-04-09 10:02 | PCM.PNPP ---
- General Info Date of Service: 04/09/17 Admission Dx/Problem (Free Text): 21 yo now P1 s/p Primary POD2 Subjective Update: Patient seen at bedside , denies any problems , she is ambulating, voiding tolerating regular diet. She has good pain control, denies dizzness , shortness of breathe or fatigue. Functional Status: Reports: Pain Controlled, Tolerating Diet, Ambulating, Urinating - Review of Systems General: Reports: No Symptoms HEENT: Reports: No Symptoms Pulmonary: Reports: No Symptoms Cardiovascular: Reports: No Symptoms Gastrointestinal: Reports: No Symptoms Genitourinary: Reports: No Symptoms Musculoskeletal: Reports: No Symptoms Skin: Reports: No Symptoms Neurological: Reports: No Symptoms Psychiatric: Reports: No Symptoms - General Info Date of Service: 04/09/17 - Patient Data Vital Signs - Most Recent: Last Vital Signs Temp 36.7 C 04/09/17 04:20 Pulse 93 04/09/17 04:20 Resp 16 04/09/17 04:20 BP 138/90 04/09/17 04:20 Pulse Ox 98 04/09/17 04:20 Weight - Most Recent: 78.471 kg Med Orders - Current: Current Medications Bisacodyl (Dulcolax) 10 mg RECTAL .ONCE PRN PRN Reason: Constipation Diphenhydramine HCl (Benadryl) 25 mg IVPUSH Q6H PRN PRN Reason: Itching or Nausea Docusate Sodium (Colace) 100 mg PO BID [facility] Last Admin: 04/09/17 09:46 Dose: 100 mg Emollient Ointment (Lansinoh Hpa) 0 gm TOP ASDIRECTED PRN PRN Reason: Sore Nipples Last Admin: 04/08/17 00:32 Dose: 7 gm Lactated Ringer's (Ringers, Lactated) 1,000 mls @ 150 mls/hr IV ASDIRECTED [facility] Last Admin: 04/06/17 17:13 Dose: 999 mls/hr Lactated Ringer's (Ringers, Lactated) 1,000 mls @ 125 mls/hr IV ASDIRECTED [facility] Last Admin: 04/07/17 12:33 Dose: 125 mls/hr Potassium Chloride/Dextrose/Sod Cl (D5 1/2 Ns W/ 20 Meq/L Kcl) 1,000 mls @ 125 mls/hr IV ASDIRECTED [facility] Last Admin: 04/08/17 02:06 Dose: 125 mls/hr Ibuprofen (Motrin) 800 mg PO Q8H PRN PRN Reason: mild pain or fever Last Admin: 04/09/17 04:20 Dose: 800 mg Methylergonovine Maleate (Methergine) 0.2 mg IM ASDIRECTED PRN PRN Reason: Post Hemorrhage Misoprostol (Cytotec) 200 mcg PO .ONCE PRN PRN Reason: Post Hemorrhage Ondansetron HCl (Zofran) 4 mg IVPUSH Q4H PRN PRN Reason: Nausea Last Admin: 04/06/17 15:34 Dose: 4 mg Ondansetron HCl (Zofran) 4 mg IV Q4H PRN PRN Reason: Nausea/Vomiting Oxycodone/Acetaminophen (Percocet 325-5 Mg) 1 - 2 tab PO Q4H PRN PRN Reason: Pain (moderate 4-6) Last Admin: 04/09/17 09:46 Dose: 2 tab Discontinued Medications Acetaminophen (Tylenol Extra Strength) 1,000 mg PO ONETIME ONE Stop: 04/06/17 21:29 Last Admin: 04/06/17 21:40 Dose: 1,000 mg Butorphanol Tartrate (Stadol) 1 mg IVPUSH Q1H PRN PRN Reason: Pain Last Admin: 04/06/17 01:13 Dose: 1 mg Carboprost Tromethamine (Hemabate Ds) 250 mcg IM ASDIRECTED PRN PRN Reason: Post Hemorrhage Cefazolin Sodium (Ancef) Confirm Administered Dose 2 gm .ROUTE .STK-MED ONE Stop: 04/07/17 01:23 Citric Acid/Sodium Citrate (Bicitra Solution) 30 ml PO ONETIME ONE Stop: 04/07/17 01:27 Citric Acid/Sodium Citrate (Bicitra Solution) Confirm Administered Dose 30 ml .ROUTE .STK-MED ONE Stop: 04/07/17 01:32 Last Admin: 04/08/17 17:24 Dose: Not Given Fentanyl (Sublimaze) Confirm Administered Dose 100 mcg .ROUTE .STK-MED ONE Stop: 04/06/17 03:09 Last Admin: 04/06/17 04:07 Dose: Not Given Fentanyl (Sublimaze) Confirm Administered Dose 100 mcg .ROUTE .STK-MED ONE Stop: 04/07/17 02:09 Oxytocin/Lactated Ringer's (Pitocin In Lr 30 Units/500 Ml) 30 unit in 500 mls @ 2 mls/hr IV TITRATE DAR; 2 MUNITS/MIN PRN Reason: Protocol Stop: 04/05/17 19:59 Oxytocin/Lactated Ringer's (Pitocin In Lr 30 Units/500 Ml) 30 unit in 500 mls @ 2 mls/hr IV TITRATE DAR; 2 MUNITS/MIN PRN Reason: Protocol Last Titration: 04/07/17 01:06 Dose: 0 munits/min, 0 mls/hr Ropivacaine (Naropin 0.2%) Confirm Administered Dose 100 mls @ as directed .ROUTE .[facility] ONE Stop: 04/06/17 03:09 Last Admin: 04/06/17 04:07 Dose: Not Given Ropivacaine (Naropin 0.2%) Confirm Administered Dose 100 mls @ as directed .ROUTE .[facility] ONE Stop: 04/06/17 13:50 Ropivacaine (Naropin 0.2%) Confirm Administered Dose 100 mls @ as directed .ROUTE .[facility] ONE Stop: 04/06/17 20:22 Ampicillin Sodium 2 gm/ Sodium (Chloride) 100 mls @ 200 mls/hr IV ONETIME ONE Stop: 04/06/17 21:57 Last Admin: 04/06/17 21:50 Dose: 200 mls/hr Ampicillin Sodium 1 gm/ Sodium (Chloride) 50 mls @ 100 mls/hr IV Q4H [facility] Last Admin: 04/07/17 10:15 Dose: 100 mls/hr Gentamicin Sulfate 80 mg/ (Sodium Chloride) 52 mls @ 104 mls/hr IV Q8H [facility] Last Admin: 04/06/17 22:23 Dose: 104 mls/hr Ampicillin Sodium 1 gm/ Sodium (Chloride) 50 mls @ 100 mls/hr IV Q4H [facility] Stop: 04/08/17 02:00 Last Admin: 04/08/17 02:05 Dose: 100 mls/hr Gentamicin Sulfate 80 mg/ (Sodium Chloride) 52 mls @ 100 mls/hr IV Q8H [facility] Stop: 04/08/17 05:00 Last Admin: 04/08/17 05:06 Dose: 100 mls/hr Lactated Ringer's (Ringers, Lactated) 500 mls @ 999 mls/hr IV .[facility]OL[facility] ONE Stop: 04/07/17 13:00 Last Admin: 04/08/17 17:29 Dose: Not Given Ketorolac Tromethamine (Toradol) 30 mg IVPUSH Q6H [facility] Stop: 04/08/17 02:46 Last Admin: 04/08/17 03:01 Dose: 30 mg Lidocaine (Xylocaine-Mpf 2%) Confirm Administered Dose 20 ml .ROUTE .STK-MED ONE Stop: 04/07/17 01:21 Lidocaine HCl (Xylocaine 1%) 50 ml INJECT .ONCE PRN PRN Reason: Laceration repair Misoprostol (Cytotec) 25 mcg VAG .ONCE DAR Last Admin: 04/04/17 20:36 Dose: 25 mcg Misoprostol (Cytotec) 25 mcg VAG Q6H [facility] Stop: 04/06/17 20:31 Last Admin: 04/06/17 04:07 Dose: Not Given Morphine Sulfate (Duramorph Pf) Confirm Administered Dose 10 mg .ROUTE .STK-MED ONE Stop: 04/07/17 02:00 Nalbuphine HCl (Nubain) 10 mg IVPUSH Q1H PRN PRN Reason: Pain (severe 7-10) Stop: 04/04/17 21:50 Octyl Cyanoacrylate (Dermabond Advance) Confirm Administered Dose 1 applic .ROUTE .STK-MED ONE Stop: 04/07/17 02:18 Ondansetron HCl (Zofran) Confirm Administered Dose 4 mg .ROUTE .STK-MED ONE Stop: 04/07/17 01:53 Oxytocin (Pitocin) Confirm Administered Dose 20 unit .ROUTE .STK-MED ONE Stop: 04/07/17 01:52 Oxytocin (Pitocin) Confirm Administered Dose 10 unit .ROUTE .STK-MED ONE Stop: 04/07/17 02:26 Sodium Chloride (Saline Flush) 10 ml FLUSH ASDIRECTED PRN PRN Reason: Keep Vein Open Sodium Chloride (Saline Flush) 2.5 ml FLUSH ASDIRECTED PRN PRN Reason: Keep Vein Open Sterile Water (Sterile Water For Irrigation) 1,000 ml IRR ASDIRECTED PRN PRN Reason: delivery Terbutaline Sulfate (Brethine) 0.25 mg SUBCUT ASDIRECTED PRN PRN Reason: Tacysystole - Infant Interaction Disposition, : to Nursery Feeding: Attempted ; Nursed Fair/Poor Support Person: Mother, Significant Other - Recovery Exam Fundal Tone: Firm Fundal Level: 1 Fingerbreadths Below Umbilicus Fundal Placement: Midline Lochia Amount: Scant Lochia Color: Rubra/Red Perineum Description: Intact, Minimal Bruising/Swelling Episiotomy/Laceration: None Bladder Status: Voiding Urinary Elimination: Voided - Exam General: Alert, Oriented Lungs: Clear to Auscultation Cardiovascular: Regular Rate, Regular Rhythm GI/Abdominal Exam: Normal Bowel Sounds, Other (Pfannestiel skin incision well approximated c/d/i ) Psy/Mental Status: Alert, Normal Affect - Problem List & Annotations (1) delivery delivered SNOMED Code(s): 531778071 Code(s): O82 - ENCOUNTER FOR DELIVERY WITHOUT INDICATION Status: Acute Priority: Low Current Visit: Yes Onset Date: ~04/07/17 (2) delivery delivered SNOMED Code(s): 768918669 Code(s): O82 - ENCOUNTER FOR DELIVERY WITHOUT INDICATION Status: Acute Priority: Low Current Visit: Yes - Problem List Review Problem List Initiated/Reviewed/Updated: Yes - Assessment Assessment:: POD #2 from [facility] due to arrest of decent. also with chorioamnionitis stable, afebrile, anemia ( asymptomatic) - Plan Plan:: Discharge home today Continue regular diet Ambulation Pain control Follow up in 2 weeks for wound check and 6 weeks for PP visit
== END 2017-04-09 12:45 | disposition home or self-care (01) | DRG 540 ==
LOC: MW.OBCHECK 19:31 → MW.OB 19:34 → MW.OBCHECK 19:49 → MW.OB 04-07 01:54 → OBSVTOIN 04-07 01:54
PROVIDERS: ADMIT Obstetrics & Gynecology; ATTEND Obstetrics & Gynecology
PROC: 10D00Z1 Extraction of Products of Conception, Low, Open Approach (ICD-10-PCS; principal; 2017-04-07)
PROC: 3E0P7GC Introduction of Other Therapeutic Substance into Female Reproductive, Via Natural or Artificial Opening (ICD-10-PCS; 2017-04-07)
PROC: 10907ZC Drainage of Amniotic Fluid, Therapeutic from Products of Conception, Via Natural or Artificial Opening (ICD-10-PCS; 2017-04-07)
DX: O36.8130 Decreased fetal movements, third trimester, not applicable or unspecified (principal); O40.3XX0 Polyhydramnios, third trimester, not applicable or unspecified; O62.1 Secondary uterine inertia; O75.2 Pyrexia during labor, not elsewhere classified; O41.1230 Chorioamnionitis, third trimester, not applicable or unspecified; Z3A.40 40 weeks gestation of pregnancy; Z37.0 Single live birth
CPT/HCPCS: 01967; 01968; 36415; 59025; 80048; 85025; 85027; 86850; 86900; 86901; 88307; A9270-GY; J0290; J0595; J0690; J1580; J1885; J2270; J2405; J2590; J3010; J3480; J7030; J7050; J7120

== ENCOUNTER 2017-04-10 15:15 | Emergency (ER) | payer BC, OTHER ==
--- NOTE | 2017-04-10 15:33 | EDM.PDOC ---
ED HPI GENERAL MEDICAL PROBLEM - General Chief Complaint: Respiratory Problem Stated Complaint: UNK Time Seen by Provider: 04/10/17 15:15 Source of Information: Reports: Patient History Limitations: Reports: No Limitations - History of Present Illness INITIAL COMMENTS - FREE TEXT/NARRATIVE: HISTORY AND PHYSICAL: History of present illness: [Patient comes to the emergency room via EMS. She complains of pain with inspiration and a "funny feeling" in her chest. Symptoms were mild last evening and have gradually worsened today. She complains of pain to her mid upper thoracic back with taking a deep breath. She's had some pain across her left chest that radiated into her neck and into her mid back. Symptoms come and go and are not constant. She's had no dizziness or fainting. No fever chills. She had a on April 07 and was discharged home yesterday morning. She took one tablet of Tylenol this morning. This did not improve her discomfort. Krzysztof first responders gave her 4 baby aspirin prior to EMS arrival. LC1] Review of systems: As per history of present illness and below otherwise all systems reviewed and negative. Past medical history: As per history of present illness and as reviewed below otherwise noncontributory. Surgical history: As per history of present illness and as reviewed below otherwise noncontributory. Social history: No reported history of drug or alcohol abuse. Family history: As per history of present illness and as reviewed below otherwise noncontributory. Physical exam: General: Well developed well nourished female in no acute distress. Resting comfortably in bed. HEENT: Atraumatic, normocephalic. Oral mucous membranes moist and pink. Neck supple, no lymphadenopathy. Lungs: Clear to auscultation, breath sounds equal bilaterally. No wheezing crackles or rales. Heart: S1S2, regular rate and rhythm. Abdomen: Soft, nondistended, nontender. Consistent w/ 2 days post . Pelvis: Stable nontender. Genitourinary: Deferred. Rectal: Deferred. Extremities: Atraumatic, negative for cords or calf pain. Mild swelling but no cyanosis appreciated. Neurovascular unremarkable. Neuro: Awake, alert, oriented. Motor and sensory unremarkable throughout. Exam nonfocal. Diagnostics: [CBC, CMP, UA w/ micro, troponin, EKG, CTA chest] Impression: [Shortness of breath 2 days , ] Plan: [Discussed w/ patient that CT scan is negative for PE. Recommend incentive spirometry every 1-2 hours. Rest, use support system, get plenty of fluids, follow up with PCP and OB in the 3-4 days. Strict return precautions are reviewed with patient. She is in agreement with today's plan. ] Definitive disposition and diagnosis as appropriate pending reevaluation and review of above. Mid Upper Back Pain Score (Numeric/FACES): 3 - Related Data Allergies Allergy/AdvReac Type Severity Reaction Status Date / Time No Known Allergies Allergy Verified 04/10/17 15:23 Home Meds: Home Meds Levothyroxine [Synthroid] 1 tab PO DAILY 08/12/14 [History] Vit #108/Iron/FA [ One Tablet] 1 tab PO DAILY 09/29/16 [History ] oxyCODONE HCl/Acetaminophen [Percocet 5-325 mg Tablet] 1 each PO Q4HR 04/10/17 [ History] Past Medical History HEENT 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: None Cardiovascular 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: None Respiratory 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: None Gastrointestinal 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: GERD Genitourinary 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: None 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: Musculoskeletal 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: None Neurological 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: None Psychiatric 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: None Endocrine/Metabolic 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: Hypothyroidism, Obesity/BMI 30+ Hematologic 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: Anemia Immunologic 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: None Oncologic (Cancer) 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: None Dermatologic 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: None - Infectious Disease History Infectious Disease 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: None - Past Surgical History HEENT Surgical 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: Tonsillectomy, Other (See Below) Other HEENT Surgeries/Procedures: wisdom teeth removal Musculoskeletal Surgical 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: Other (See Below) Other Musculoskeletal Surgeries/Procedures:: ganglion cyst removal right wrist Social & Family History - Family History Family Medical History: Noncontributory Cardiac: Reports: Afib, Hypertension, Stent Respiratory: Reports: Asthma : Reports: Renal Disease/Insufficiency OBGYN: Reports: Musculoskeletal: Reports: RA Endocrine/Metabolic: Reports: Diabetes, Type I, Hypothyroidism, Other (See Below ) Other Endocrine/Metabolic Family History: Hoshimoto Oncologic: Reports: Pancreatic - Tobacco Use Smoking Status *Q: Never Smoker Second Hand Smoke Exposure: No - Caffeine Use Caffeine Use: Reports: None - Alcohol Use Days Per Week of Alcohol Use: 0 - Recreational Drug Use Recreational Drug Use: No ED ROS GENERAL - Review of Systems Review Of Systems: ROS reveals no pertinent complaints other than HPI. ED EXAM, GENERAL - Physical Exam Exam: See Below Course - Vital Signs Last Recorded V/S: Last Vital Signs Temp 97.4 F 04/10/17 15:24 Pulse 72 04/10/17 15:24 Resp 18 04/10/17 15:24 BP 156/92 H 04/10/17 15:24 Pulse Ox 98 04/10/17 15:24 - Orders/Labs/Meds Orders: Active Orders 24 hr Category Date Time Status EKG Documentation Completion [RC] STAT Care 04/10/17 15:22 Active CTA Chest W WO Contrast [Ang Chest] [CT] Stat Exams 04/10/17 15:22 Taken Labs: Laboratory Tests 04/10/17 04/10/17 04/10/17 Range/Units 15:30 15:30 15:30 WBC 10.07 (4.0-11.0) K/uL RBC 2.54 L (4.30-5.90) M/uL Hgb 7.1 L (12.0-16.0) g/dL Hct 21.3 L (36.0-46.0) % MCV 83.9 (80.0-98.0) fL MCH 28.0 (27.0-32.0) pg MCHC 33.3 (31.0-37.0) g/dL RDW Std Deviation 43.2 (28.0-62.0) fl RDW Coeff of Mynor 14 (11.0-15.0) % Plt Count 298 (150-400) K/uL MPV 8.70 (7.40-12.00) fL Neut % (Auto) 72.9 (48.0-80.0) % Lymph % (Auto) 18.8 (16.0-40.0) % [place] % (Auto) 6.6 (0.0-15.0) % Eos % (Auto) 1.5 (0.0-7.0) % Baso % (Auto) 0.2 (0.0-1.5) % Neut # (Auto) 7.4 H (1.4-5.7) K/uL Lymph # (Auto) 1.9 (0.6-2.4) K/uL [place] # (Auto) 0.7 (0.0-0.8) K/uL Eos # (Auto) 0.2 (0.0-0.7) K/uL Baso # (Auto) 0.0 (0.0-0.1) K/uL Nucleated RBC % 0.0 /100WBC Nucleated RBCs # 0 K/uL Sodium 141 (136-146) mmol/L Potassium 3.3 L (3.5-5.1) mmol/L Chloride 111 H (98-110) mmol/L Carbon Dioxide 21 (21-31) mmol/L BUN 5 L (6.0-23.0) mg/dL Creatinine 0.6 (0.6-1.5) mg/dL Est Cr Clr Drug Dosing 113.93 mL/min Estimated GFR (MDRD) > 60.0 ml/min Glucose 100 (60-110) mg/dL Calcium 9.3 (8.8-10.8) mg/dL Total Bilirubin 0.3 (0.1-1.5) mg/dL AST 21 (5-40) IU/L ALT 17 (8-54) IU/L Alkaline Phosphatase 107 (40-150) Troponin I < 0.10 (0.0-0.29) NG/ML Total Protein 5.6 L (6.0-8.0) g/dL Albumin 2.7 L (3.5-5.0) g/dL Globulin 2.9 (2.0-3.5) g/dL Albumin/Globulin Ratio 0.9 L (1.3-2.8) Urine Color Urine Appearance Urine pH (5.0-8.0) Ur Specific [place] (1.001-1.035) Urine Protein (NEGATIVE) mg/dL Urine Glucose (UA) (NEGATIVE) mg/dL Urine Ketones (NEGATIVE) mg/dL Urine Occult Blood (NEGATIVE) Urine Nitrite (NEGATIVE) Urine Bilirubin (NEGATIVE) Urine Urobilinogen (<2.0) EU/dL Ur Leukocyte Esterase (NEGATIVE) Urine RBC (0-2/HPF) Urine WBC (0-5/HPF) Ur Epithelial Cells (NONE-FEW) Urine Bacteria (NEGATIVE) 04/10/17 Range/Units 15:35 WBC (4.0-11.0) K/uL RBC (4.30-5.90) M/uL Hgb (12.0-16.0) g/dL Hct (36.0-46.0) % MCV (80.0-98.0) fL MCH (27.0-32.0) pg MCHC (31.0-37.0) g/dL RDW Std Deviation (28.0-62.0) fl RDW Coeff of Mynor (11.0-15.0) % Plt Count (150-400) K/uL MPV (7.40-12.00) fL Neut % (Auto) (48.0-80.0) % Lymph % (Auto) (16.0-40.0) % [place] % (Auto) (0.0-15.0) % Eos % (Auto) (0.0-7.0) % Baso % (Auto) (0.0-1.5) % Neut # (Auto) (1.4-5.7) K/uL Lymph # (Auto) (0.6-2.4) K/uL [place] # (Auto) (0.0-0.8) K/uL Eos # (Auto) (0.0-0.7) K/uL Baso # (Auto) (0.0-0.1) K/uL Nucleated RBC % /100WBC Nucleated RBCs # K/uL Sodium (136-146) mmol/L Potassium (3.5-5.1) mmol/L Chloride (98-110) mmol/L Carbon Dioxide (21-31) mmol/L BUN (6.0-23.0) mg/dL Creatinine (0.6-1.5) mg/dL Est Cr Clr Drug Dosing mL/min Estimated GFR (MDRD) ml/min Glucose (60-110) mg/dL Calcium (8.8-10.8) mg/dL Total Bilirubin (0.1-1.5) mg/dL AST (5-40) IU/L ALT (8-54) IU/L Alkaline Phosphatase (40-150) Troponin I (0.0-0.29) NG/ML Total Protein (6.0-8.0) g/dL Albumin (3.5-5.0) g/dL Globulin (2.0-3.5) g/dL Albumin/Globulin Ratio (1.3-2.8) Urine Color YELLOW Urine Appearance CLEAR Urine pH 6.5 (5.0-8.0) Ur Specific [place] <= 1.005 (1.001-1.035) Urine Protein NEGATIVE (NEGATIVE) mg/dL Urine Glucose (UA) NEGATIVE (NEGATIVE) mg/dL Urine Ketones NEGATIVE (NEGATIVE) mg/dL Urine Occult Blood MODERATE (NEGATIVE) Urine Nitrite NEGATIVE (NEGATIVE) Urine Bilirubin NEGATIVE (NEGATIVE) Urine Urobilinogen 0.2 (<2.0) EU/dL Ur Leukocyte Esterase NEGATIVE (NEGATIVE) Urine RBC 2-5 (0-2/HPF) Urine WBC 0-2 (0-5/HPF) Ur Epithelial Cells OCCASIONAL (NONE-FEW) Urine Bacteria OCCASIONAL (NEGATIVE) Meds: Medications Discontinued Medications Generic Name Dose Route Start Last Admin Trade Name Freq PRN Reason Stop Dose Admin Iopamidol 50 ml 04/10/17 17:01 04/10/17 17:02 Isovue-370 (76%) IV 04/10/17 17:02 50 ml ONETIME STA Administration Departure - Departure Time of Disposition: 18:10 Disposition: Home, Self-Care 01 Condition: Good Clinical Impression: Shortness of breath - Discharge Information Forms: ED Department Discharge Additional Instructions: The following information is given to patients seen in the emergency department who are being discharged to home. This information is to outline your options for follow-up care. We provide all patients seen in our emergency department with a follow-up referral. The need for follow-up, as well as the timing and circumstances, are variable depending upon the specifics of your emergency department visit. If you don't have a primary care physician on staff, we will provide you with a referral. We always advise you to contact your personal physician following an emergency department visit to inform them of the circumstance of the visit and for follow-up with them and/or the need for any referrals to a consulting specialist. The emergency department will also refer you to a specialist when appropriate. This referral assures that you have the opportunity for follow-up care with a specialist. All of these measure are taken in an effort to provide you with optimal care, which includes your follow-up. Under all circumstances we always encourage you to contact your private physician who remains a resource for coordinating your care. When calling for follow-up care, please make the office aware that this follow-up is from your recent emergency room visit. If for any reason you are refused follow-up, please contact the [facility] emergency department at and asked to speak to the emergency department charge nurse. [facility] Primary care - Women[facility] [place] [id number] The study completed today shows that you do not have a blood clot in your lung. Recommend that you follow-up with your OB in the next 2-3 days and as we discussed. Return to ER as needed. - My Orders Last 24 Hours: My Active Orders 04/10/17 15:22 EKG Documentation Completion [RC] STAT CTA Chest W WO Contrast [Ang Chest] [CT] Stat - Assessment/Plan Last 24 Hours: My Active Orders 04/10/17 15:22 EKG Documentation Completion [RC] STAT CTA Chest W WO Contrast [Ang Chest] [CT] Stat
[2017-04-10 16:08] LABS: CHLORIDE,CL 111 mmol/L (98-110); SODIUM,NA 141 mmol/L (136-146)
[2017-04-10] MEDS ORDERED: Iopamidol 755 MG/ML 50 ML Bottle IV STA (17:01)
[2017-04-10 20:21] VITALS: BP 145/80
--- NOTE | 2017-04-11 13:15 | CT ---
EXAM DATE: 04/10/17 PATIENT'S AGE: 21 Patient: ELIGIO MONTGOMERY Facility: [place], [place] Site . Site : 1995 Study: CT Chest Angio [id number]/13/2017 5:10:40 PM Ordering Physician: Doctor Werner Final Report: INDICATION: Shortness of breath and chest pain, 2 days , TECHNIQUE: CT chest pulmonary PE protocol acquired with 50 cc Isovue 370 IV contrast. COMPARISON: None FINDINGS: Cardiovascular structures: Normal vascular enhancement of the pulmonary arteries , no sign of pulmonary embolism. Heart size is normal. No sign of aneurysm or dissection in the thoracic aorta. Mediastinum and gianfranco: No mass or adenopathy. Lungs: Scattered nodular opacities in the right lower lobe. Single nodular density in the left lower lobe. Pleura and pericardium: Small bilateral pleural effusions. Chest wall and axilla: No mass or adenopathy. Upper abdomen: Unremarkable. Bones: No significant findings. IMPRESSION: No pulmonary embolus. Small bilateral pleural effusions. Nodular opacities in both lower lobes could represent infection. Please note that all CT scans at this facility use dose modulation, iterative reconstruction, and/or weight-based dosing when appropriate to reduce radiation dose to as low as reasonably achievable. Dictated by Anita Alcantara MD @ Apr 10 2017 5:44PM (Electronic Signature) Report Signed by Proxy. [facility]
== END 2017-04-10 18:35 | disposition home or self-care (01) ==
LOC: MW.ED 15:15
DX: O90.89 Other complications of the puerperium, not elsewhere classified (principal); R06.02 Shortness of breath; E03.9 Hypothyroidism, unspecified; K21.9 Gastro-esophageal reflux disease without esophagitis; Z86.2 Personal history of diseases of the blood and blood-forming organs and certain disorders involving the immune mechanism; Z98.890 Other specified postprocedural states
CPT/HCPCS: 36415; 71275; 80053; 81001; 84484; 85025; 93005; 99285; Q9967; 99284

== ENCOUNTER 2018-09-13 21:44 | Emergency (ER) | payer BC ==
[2018-09-13] MEDS ORDERED: Ondansetron 4 MG/2 ML SDV IVPUSH ONE (22:14)
[2018-09-13] MEDS ORDERED: diphenhydrAMINE 50 MG/ML SDV IVPUSH ONE (22:14)
[2018-09-13] MEDS ORDERED: Metoclopramide 10 MG/2 ML SDV IV ONE (22:14)
[2018-09-13] MEDS ORDERED: Sodium Chloride 0.9% 1,000 ML IV ONE (22:14)
--- NOTE | 2018-09-13 22:17 | EDM.PDOC ---
ED HPI GENERAL MEDICAL PROBLEM - General Chief Complaint: Headache Stated Complaint: PT HAS MIGRAINE AND 14WKS Time Seen by Provider: 09/13/18 21:53 - History of Present Illness INITIAL COMMENTS - FREE TEXT/NARRATIVE: HISTORY AND PHYSICAL: History of present illness: Patient's a 23-year-old female with history of migraine headache was approximately 14 weeks presents with concern of migraine headache she denies any abdominal pain cramping or other concerns. Review of systems: As per history of present illness and below otherwise all systems reviewed and negative. Past medical history: As per history of present illness and as reviewed below otherwise noncontributory. Surgical history: As per history of present illness and as reviewed below otherwise noncontributory. Social history: No reported history of drug or alcohol abuse. Family history: As per history of present illness and as reviewed below otherwise noncontributory. Physical exam: HEENT: Atraumatic, normocephalic, pupils reactive, negative for conjunctival pallor or scleral icterus, mucous membranes moist, throat clear, neck supple, nontender, trachea midline. Lungs: Clear to auscultation, breath sounds equal bilaterally, chest nontender. Heart: S1S2, regular, negative for clicks, rubs, or JVD. Abdomen: Soft, nondistended, nontender. Negative for masses or hepatosplenomegaly. Negative for costovertebral tenderness. Pelvis: Stable nontender. Genitourinary: Deferred. Rectal: Deferred. Extremities: Atraumatic, negative for cords or calf pain. Neurovascular unremarkable. Neuro: Awake, alert, oriented. Cranial nerves II through XII unremarkable. Cerebellum unremarkable. Motor and sensory unremarkable throughout. Exam nonfocal. Diagnostics: None Therapeutics: Saline 1 L bolus Reglan 10 mg IV Zofran 4 mg IV Benadryl 50 mg IV Impression: #1 second trimester #2 migraine headache Definitive disposition and diagnosis as appropriate pending reevaluation and review of above. - Related Data Allergies Allergy/AdvReac Type Severity Reaction Status Date / Time No Known Allergies Allergy Verified 09/13/18 21:54 Home Meds: Home Meds Levothyroxine [Synthroid] 1 tab PO DAILY 08/12/14 [History] Vit #108/Iron/FA [ One Tablet] 1 tab PO DAILY 09/29/16 [History ] Past Medical History HEENT 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: None Cardiovascular 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: None Respiratory 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: None Gastrointestinal 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: GERD Genitourinary 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: None UNDERWRITING INTERN 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: Musculoskeletal 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: None Neurological 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: None Psychiatric 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: None Endocrine/Metabolic 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: Hypothyroidism, Obesity/BMI 30+ Hematologic 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: Anemia Immunologic 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: None Oncologic (Cancer) 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: None Dermatologic 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: None - Infectious Disease History Infectious Disease 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: None - Past Surgical History HEENT Surgical 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: Tonsillectomy, Other (See Below) Other HEENT Surgeries/Procedures: wisdom teeth removal Musculoskeletal Surgical 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: Other (See Below) Other Musculoskeletal Surgeries/Procedures:: ganglion cyst removal right wrist Social & Family History - Family History Family Medical History: Noncontributory Cardiac: Reports: Afib, Hypertension, Stent Respiratory: Reports: Asthma : Reports: Renal Disease/Insufficiency OBGYN: Reports: Musculoskeletal: Reports: RA Endocrine/Metabolic: Reports: Diabetes, Type I, Hypothyroidism, Other (See Below ) Other Endocrine/Metabolic Family History: Hoshimoto Oncologic: Reports: Pancreatic - Tobacco Use Smoking Status *Q: Never Smoker Second Hand Smoke Exposure: No - Caffeine Use Caffeine Use: Reports: None - Recreational Drug Use Recreational Drug Use: No ED ROS GENERAL - Review of Systems Review Of Systems: ROS reveals no pertinent complaints other than HPI. ED EXAM, GENERAL - Physical Exam Exam: See Below (See dictation) Course - Vital Signs Last Recorded V/S: Last Vital Signs Temp 36.2 C 09/13/18 21:52 Pulse 100 09/13/18 21:52 Resp 18 09/13/18 21:52 BP 143/78 H 09/13/18 21:52 Pulse Ox 98 09/13/18 21:52 - Orders/Labs/Meds Orders: Active Orders 24 hr Category Date Time Status Sodium Chloride 0.9% [Normal Saline] 1,000 ml Med 09/13/18 22:14 Ordered IV STAT Medication Orders Sodium Chloride (Normal Saline) 1,000 mls @ 999 mls/hr IV STAT ONE Stop: 09/13/18 23:14 Meds: Medications Generic Name Dose Route Start Last Admin Trade Name Freq PRN Reason Stop Dose Admin Sodium Chloride 1,000 mls @ 999 mls/hr 09/13/18 22:14 Normal Saline IV 09/13/18 23:14 STAT ONE Discontinued Medications Generic Name Dose Route Start Last Admin Trade Name Sage GARDNERN Reason Stop Dose Admin Diphenhydramine HCl 50 mg 09/13/18 22:14 Benadryl IVPUSH 09/13/18 22:15 ONETIME ONE Metoclopramide HCl 10 mg 09/13/18 22:14 Reglan IV 09/13/18 22:15 ONETIME ONE Ondansetron HCl 4 mg 09/13/18 22:14 Zofran IVPUSH 09/13/18 22:15 ONETIME ONE Departure - Departure Time of Disposition: 22:16 Disposition: Home, Self-Care 01 Condition: Good Clinical Impression: Migraine, Second trimester - Discharge Information Additional Instructions: The following information is given to patients seen in the emergency department who are being discharged to home. This information is to outline your options for follow-up care. We provide all patients seen in our emergency department with a follow-up referral. The need for follow-up, as well as the timing and circumstances, are variable depending upon the specifics of your emergency department visit. If you don't have a primary care physician on staff, we will provide you with a referral. We always advise you to contact your personal physician following an emergency department visit to inform them of the circumstance of the visit and for follow-up with them and/or the need for any referrals to a consulting specialist. The emergency department will also refer you to a specialist when appropriate. This referral assures that you have the opportunity for followup care with a specialist. All of these measure are taken in an effort to provide you with optimal care, which includes your followup. Under all circumstances we always encourage you to contact your private physician who remains a resource for coordinating your care. When calling for followup care, please make the office aware that this follow-up is from your recent emergency room visit. If for any reason you are refused follow-up, please contact the [facility] emergency department at and asked to speak to the emergency department charge nurse. Follow-up primary medical doctor/LOAN CLERK return as needed as discussed - My Orders Last 24 Hours: My Active Orders 09/13/18 22:14 Sodium Chloride 0.9% [Normal Saline] 1,000 ml IV STAT - Assessment/Plan Last 24 Hours: My Active Orders 09/13/18 22:14 Sodium Chloride 0.9% [Normal Saline] 1,000 ml IV STAT
[2018-09-14 00:03] VITALS: BP 109/61
== END 2018-09-14 00:04 | disposition home or self-care (01) ==
LOC: MW.ED 21:44
DX: O99.352 Diseases of the nervous system complicating pregnancy, second trimester (principal); G43.909 Migraine, unspecified, not intractable, without status migrainosus; O99.282 Endocrine, nutritional and metabolic diseases complicating pregnancy, second trimester; E03.9 Hypothyroidism, unspecified; Z3A.14 14 weeks gestation of pregnancy; Z79.899 Other long term (current) drug therapy
CPT/HCPCS: 96361; 96374; 96375; 99283; J1200; J2405; J2765; J7040

== ENCOUNTER 2019-01-30 22:40 | Observation (INO) | payer BC, OTHER | END 2019-01-31 00:15 | disposition home or self-care (01) | LOC: MW.OB 22:40 | PROVIDERS: ADMIT Obstetrics & Gynecology; ATTEND Obstetrics & Gynecology | DX: O99.89 Other specified diseases and conditions complicating pregnancy, childbirth and the puerperium (principal); R10.30 Lower abdominal pain, unspecified; M54.9 Dorsalgia, unspecified; Z3A.26 26 weeks gestation of pregnancy | CPT/HCPCS: 59025; 81003 ==

== ENCOUNTER 2019-03-06 08:00 | Inpatient (IN) | payer BC, OTHER ==
[2019-03-13] MEDS ORDERED: Oxytocin/0.9 % Sodium Chloride 30 UNIT/500 ML BAG IV SCH (05:45)
[2019-03-13] MEDS ORDERED: Citric Acid/Sodium Citrate Solution 30 ML Cup PO ONE (05:45)
[2019-03-13] MEDS ORDERED: Sodium Chloride 0.9% 2.5 ML Syringe FLUSH PRN (05:45)
[2019-03-13] MEDS ORDERED: Ondansetron 4 MG/2 ML SDV IVPUSH PRN ×3 (05:45→09:49)
[2019-03-13] MEDS ORDERED: Sodium Chloride 0.9% 10 ML SDV IV PRN (05:45)
[2019-03-13] MEDS ORDERED: Sodium Chloride 0.9% 10 ML Syringe FLUSH PRN (05:45)
[2019-03-13] MEDS: Lactated Ringers 1,000 ML IV SCH ×5 (06:03→18:42)
--- NOTE | 2019-03-13 06:50 | PCM.PREANE ---
Preanesthetic Assessment - Anesthesia/Transfusion/Family Hx Anesthesia History: Prior Anesthesia Without Reaction Family History of Anesthesia Reaction: No Transfusion History: No Prior Transfusion(s) Intubation History: Unknown - Review of Systems General: No Symptoms Pulmonary: No Symptoms Cardiovascular: No Symptoms Gastrointestinal: No Symptoms Neurological: No Symptoms Other: Reports: None - Physical Assessment Height: 5 ft 1 in Weight: 80.739 kg ASA Class: 2 Mental Status: Alert & Oriented x3 Airway Class: Mallampati = 1 Dentition: Reports: Normal Dentition Thyro-Mental Finger Breadths: 3 Mouth Opening Finger Breadths: 3 ROM/Head Extension: Full Lungs: Clear to Auscultation, Normal Respiratory Effort Cardiovascular: Regular Rate, Regular Rhythm - Lab Values: Laboratory Last Values WBC 10.62 K/uL (4.0-11.0) 03/13/19 06:15 RBC 3.88 M/uL (4.30-5.90) L 03/13/19 06:15 Hgb 9.7 g/dL (12.0-16.0) L 03/13/19 06:15 Hct 30.8 % (36.0-46.0) L 03/13/19 06:15 MCV 79.4 fL (80.0-98.0) L 03/13/19 06:15 MCH 25.0 pg (27.0-32.0) L 03/13/19 06:15 MCHC 31.5 g/dL (31.0-37.0) 03/13/19 06:15 RDW Std Deviation 44.5 fl (28.0-62.0) 03/13/19 06:15 RDW Coeff of Mynor 15 % (11.0-15.0) 03/13/19 06:15 Plt Count 227 K/uL (150-400) 03/13/19 06:15 MPV 8.90 fL (7.40-12.00) 03/13/19 06:15 Nucleated RBC % 0.0 /100WBC 03/13/19 06:15 Nucleated RBCs # 0 K/uL 03/13/19 06:15 - Allergies Allergies/Adverse Reactions: Allergies Allergy/AdvReac Type Severity Reaction Status Date / Time No Known Allergies Allergy Verified 03/06/19 10:08 - Blood Blood Available: No - Anesthesia Plan Pre-Op Medication Ordered: None - Acknowledgements Anesthesia Type Planned: Spinal (general anesthesia back-up plan) Pt an Appropriate Candidate for the Planned Anesthesia: Yes Alternatives and Risks of Anesthesia Discussed w Pt/Guardian: Yes Pt/Guardian Understands and Agrees with Anesthesia Plan: Yes PreAnesthesia Questionnaire HEENT 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: Other (See Below) Other HEENT History: wears glasses/contacts Cardiovascular 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: None Respiratory 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: None Gastrointestinal 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: None Genitourinary 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: None OFFLINE CUTTER 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: Musculoskeletal 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: Fracture Other Musculoskeletal History: hx fx left arm & rt foot Neurological 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: None Psychiatric 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: None Endocrine/Metabolic 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: Hypothyroidism Hematologic 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: None Immunologic 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: None Oncologic (Cancer) 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: None Dermatologic 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: None - Infectious Disease History Infectious Disease 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: None - Past Surgical History Head Surgeries/Procedures: Reports: None HEENT Surgical 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: Adenoidectomy, Oral Surgery, Tonsillectomy, Other (See Below) Other HEENT Surgeries/Procedures: wisdom teeth removal Cardiovascular Surgical 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: None Respiratory Surgical 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: None GI Surgical 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: None Female Surgical 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: Section Endocrine Surgical 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: None Neurological Surgical 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: None Musculoskeletal Surgical 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: Other (See Below) Other Musculoskeletal Surgeries/Procedures:: ganglion cyst removal right wrist Oncologic Surgical 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: None Dermatological Surgical 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: None - SUBSTANCE USE Smoking Status *Q: Never Smoker Second Hand Smoke Exposure: No Recreational Drug Use History: No - HOME MEDS Home Medications: Home Meds Mv-Mn/Iron/FA/Herbal/Digestive [ One Tablet] 1 tab PO DAILY 09/29/16 [ History] Levothyroxine Sodium [Synthroid] 75 mcg PO DAILY 03/06/19 [History] - CURRENT (IN HOUSE) MEDS Current Meds: Current Medications Lactated Ringer's (Ringers, Lactated) 1,000 mls @ 500 mls/hr IV BOLUS DAR Last Admin: 03/13/19 06:33 Dose: 500 mls/hr Oxytocin/Sodium Chloride (Oxytocin 30 Unit/500 Ml-Ns) 30 unit in 500 mls @ 250 mls/hr IV TITRATE DAR Ondansetron HCl (Zofran) 4 mg IVPUSH Q4H PRN PRN Reason: Nausea/Vomiting Sodium Chloride (Saline Flush) 10 ml FLUSH ASDIRECTED PRN PRN Reason: Keep Vein Open Sodium Chloride (Saline Flush) 2.5 ml FLUSH ASDIRECTED PRN PRN Reason: Keep Vein Open Sodium Chloride (Normal Saline) 10 ml IV ASDIRECTED PRN PRN Reason: IV Use Discontinued Medications Citric Acid/Sodium Citrate (Bicitra Solution) 30 ml PO ONETIME ONE Stop: 03/13/19 05:46
[2019-03-13] MEDS ORDERED: Sodium Chloride 0.9% 40 ML ONE (07:25)
[2019-03-13] MEDS ORDERED: ePHEDrine 50 MG/ML SDV ONE (07:25)
[2019-03-13] MEDS ORDERED: Ondansetron 4 MG/2 ML SDV ONE (07:25)
[2019-03-13] MEDS ORDERED: Oxytocin 10 Units/1 ML SDV ONE (07:25)
[2019-03-13] MEDS ORDERED: ceFAZolin 1 GM Vial ONE (07:25)
[2019-03-13] MEDS ORDERED: Morphine PF 10 MG/10 ML SDV ONE (07:30)
[2019-03-13] MEDS ORDERED: Bisacodyl 10 MG Supp RECTAL PRN (08:51)
[2019-03-13] MEDS ORDERED: diphenhydrAMINE 50 MG/ML SDV IVPUSH PRN ×2 (08:51→09:49)
[2019-03-13] MEDS ORDERED: Lanolin 100% Cream 7 GM Tube TOP PRN (08:51)
[2019-03-13] MEDS ORDERED: Aluminum Hydroxide/Magnesium Hydroxide/Simethicone Susp 30 ML Cup PO PRN (08:51)
[2019-03-13] MEDS ORDERED: Acetaminophen/oxyCODONE 325-5 MG Tab PO PRN ×3 (08:51→09:49)
--- NOTE | 2019-03-13 08:56 | PCM.OPNOTE ---
- General Post-Op/Procedure Note Date of Surgery/Procedure: 03/13/19 Operative Procedure(s): Repeat LTCS Findings: Viable male APGARs 9, 10 weight 3630 gm. Intact placenta with 3V cord Pre Op Diagnosis: 39 week IUP. Previous LTCS, desires repeat Post-Op Diagnosis: Same Anesthesia Technique: Spinal Primary Surgeon: Hue Mensah Sales And Customer Relations Rep: Amy Alanis Fluid Replacement, Intraop: 1,100 EBL in mLs: 500 Complications: none known Condition: Good
[2019-03-13] MEDS: Ketorolac 30 MG/ML SDV IVPUSH SCH ×3 (09:31→21:02)
[2019-03-13] MEDS ORDERED: Nalbuphine 10 MG/1 ML Vial IVPUSH PRN (09:49)
[2019-03-13] MEDS ORDERED: fentaNYL 100 MCG/2 ML SDV IVPUSH PRN (09:49)
[2019-03-13] MEDS ORDERED: Naloxone 0.4 MG/ML Syringe IVPUSH PRN (09:49)
--- NOTE | 2019-03-13 11:03 | OR ---
SURGEON: Hue Mensah M.D. DATE OF PROCEDURE: 03/13/2019 PREOPERATIVE DIAGNOSES: 1. 39 weeks' intrauterine . 2. Previous section, desires repeat. POSTOPERATIVE DIAGNOSES: 1. 39 weeks' intrauterine . 2. Previous section, desires repeat. PROCEDURE: Repeat low-transverse section. PRIMARY SURGEON: Hue Mensah MD. MEASURING MACHINE TENDER: Nilda Alanis. ESTIMATED BLOOD LOSS: 500 mL. FLUIDS: 1100 mL of crystalloid. ANESTHESIA: Spinal. FINDINGS: Viable male. scores 9 at 1 minute, 10 at 5 minutes. Weight of 3630 g. Intact placenta, 3-vessel cord. Normal-appearing pelvis. DISPOSITION: to nursery, mom in LDRP. PROCEDURE DETAILS: Peter is a 23-year-old, G2, P1, at 39 weeks' gestational age, who presents this morning for scheduled repeat delivery. Risks of the procedure have been discussed. Proper consent obtained. The patient was taken to operating room where she underwent spinal anesthetic, was then placed in dorsal supine position with leftward tilt. SCDs to lower extremity. Martinez to gravity. Was prepped and draped in usual sterile fashion. Received Ancef prophylactically. Time-out was performed. Anesthesia was tested, found to be adequate. Previous Pfannenstiel scar was now excised. Subcutaneous tissue was incised down the level of the rectus fascia, which was then incised in midline, lateralized on either side sharply and bluntly. Superior aspect of the fascia was tented upward. Underlying muscle was dissected sharply and bluntly away from overlying fascia. In a similar fashion, this was performed at the inferior aspect of the fascia. Rectus muscle and peritoneum were in midline and entered. Rectus muscles and peritoneum were now lateralized bluntly. Uterine position and position gently palpated. The uterovesical reflection was visualized. Bladder flap was created sharply and bluntly. Bladder was mobilized away from lower uterine segment. A low transverse hysterotomy was now performed. Uterine cavity was entered bluntly with the scalpel. Hysterotomy was lateralized bluntly. Amniotomy was performed. Clear fluid was returned. The 's head was delivered from the pelvis. Fundal pressure was applied. The infant's head was delivered followed by anterior shoulder, posterior shoulder, and remaining body without difficulty. The 's oropharynx and nares were bulb suctioned. Cord was clamped x2 and cut. Infant was handed off to attending nursery staff. Cord arterial, cord venous, cord blood sampling obtained. The placenta was now delivered. Uterine cavity cleared of all clot and debris. Hysterotomy was repaired using 0 Vicryl in continuous running locked fashion followed by re- imbricating layer. Area of bleeding along the left lateral aspect was replicated with [id number] suture as well as along the right of the midline. After this, hemostasis was evident along the uterine incision. Posterior aspect of the uterus inspected. No defects or hematomas found be forming. Tubes and ovaries appeared normal. Region was well irrigated, suction dried. Uterus returned to abdominal cavity. Colonic gutters were cleared of all clot and debris, well irrigated, suction dried. Hysterotomy was again inspected, found to be hemostatic. The rectus muscle and peritoneum were now reapproximated using 0 Vicryl with inverted mattress suture technique. Anterior aspect of the muscle, posterior aspect of the fascia closely inspected. Any areas of oozing were cauterized. The rectus fascia was reapproximated using 0 Vicryl in continuous running fashion, beginning laterally on either side and meeting in the midline. Subcutaneous tissue was well irrigated, suction dried. Any areas of oozing were cauterized. The skin edges were reapproximated using 3- 0 Vicryl in subcuticular fashion on a Miah needle followed by a re-imbrication of incision with half-inch Steri-Strips, Mastisol. Uterus remained firm. Sponge, instrument, and needle counts correct x2. The patient tolerated the procedure well. She will go to PACU in stable condition. Infant to nursery. BERNICE / WOJCIECH /[id number]
[2019-03-13] MEDS: Docusate Sodium 100 MG Cap PO SCH ×2 (11:52→21:02)
[2019-03-13] MEDS: Simethicone 80 MG Tab.Chew PO SCH ×3 (13:34→23:53)
[2019-03-14] MEDS: Ketorolac 30 MG/ML SDV IVPUSH SCH ×2 (02:42→09:19)
[2019-03-14] MEDS: Simethicone 80 MG Tab.Chew PO SCH ×3 (06:00→20:43)
--- NOTE | 2019-03-14 06:41 | PCM48HPAN ---
Post Anesthesia Note - EVALUATION WITHIN 48HRS OF ANESTHETIC Vital Signs in Normal Range: Yes Patient Participated in Evaluation: Yes Respiratory Function Stable: Yes Airway Patent: Yes Cardiovascular Function Stable: Yes Hydration Status Stable: Yes Pain Control Satisfactory: Yes Nausea and Vomiting Control Satisfactory: Yes Mental Status Recovered: Yes Resp Rate: 13 - COMMENTS/OBSERVATIONS Free Text/Narrative:: no anesthesia problems
--- NOTE | 2019-03-14 08:11 | PCM.PNPP ---
- General Info Date of Service: 03/14/19 Functional Status: Reports: Pain Controlled, Tolerating Diet, Ambulating, Urinating - Review of Systems General: Reports: Fatigue. Denies: Fever, Weakness Pulmonary: Denies: Shortness of Breath Cardiovascular: Denies: Chest Pain, Palpitations, Lightheadedness Gastrointestinal: Denies: Abdominal Pain, Nausea, Vomiting Genitourinary: Denies: Flank Pain Musculoskeletal: Reports: No Symptoms Skin: Reports: No Symptoms Neurological: Reports: No Symptoms Psychiatric: Reports: No Symptoms - General Info Date of Service: 03/14/19 - Patient Data Vital Signs - Most Recent: Last Vital Signs Temp 36.5 C 03/14/19 04:18 Pulse 81 03/14/19 06:53 Resp 15 03/14/19 06:53 BP 110/55 L 03/14/19 04:18 Pulse Ox 100 03/14/19 06:53 Weight - Most Recent: 80.739 kg I&O - Last 24 Hours: Intake & Output 03/13/19 03/14/19 03/14/19 22:59 06:59 14:59 Intake Total 550 1600 Output Total 650 1050 Balance -100 550 Lab Results - Last 24 Hours: Laboratory Results - last 24 hr 03/13/19 03/14/19 Range/Units 08:23 05:10 Hgb 8.4 L (12.0-16.0) g/dL Hct 26.3 L (36.0-46.0) % Cord ABG pH 7.307 (7.18-7.38) Cord ABG Base Excess -7 (-10--2) Cord VBG pH 7.310 (7.25-7.45) Cord VBG Base Excess -7 (-10--2) Med Orders - Current: Current Medications Al Hydroxide/Mg Hydroxide (Mag-Al Plus) 30 ml PO Q8H PRN PRN Reason: Heartburn Bisacodyl (Dulcolax) 10 mg RECTAL ONETIME PRN PRN Reason: Constipation Diphenhydramine HCl (Benadryl) 25 mg IVPUSH Q6H PRN PRN Reason: Itching or Nausea Diphenhydramine HCl (Benadryl) 25 mg IVPUSH Q4H PRN PRN Reason: Itching Stop: 03/14/19 09:49 Docusate Sodium (Colace) 100 mg PO BID [facility] Last Admin: 03/13/19 21:02 Dose: 100 mg Emollient Ointment (Lansinoh Hpa) 0 gm TOP ASDIRECTED PRN PRN Reason: Sore Nipples Fentanyl (Sublimaze) 50 mcg IVPUSH Q1H PRN PRN Reason: Pain (severe 7-10) Lactated Ringer's (Ringers, Lactated) 1,000 mls @ 500 mls/hr IV BOLUS [facility] Last Admin: 03/13/19 07:50 Dose: 500 mls/hr Oxytocin/Sodium Chloride (Oxytocin 30 Unit/500 Ml-Ns) 30 unit in 500 mls @ 250 mls/hr IV TITRATE [facility] Lactated Ringer's (Ringers, Lactated) 1,000 mls @ 125 mls/hr IV ASDIRECTED [facility] Last Admin: 03/13/19 18:42 Dose: 125 mls/hr Ibuprofen (Motrin) 800 mg PO Q8H PRN PRN Reason: mild pain or fever Ketorolac Tromethamine (Toradol) 30 mg IVPUSH Q6H [facility] Stop: 03/14/19 09:01 Last Admin: 03/14/19 02:42 Dose: 30 mg Nalbuphine HCl (Nubain) 5 mg IVPUSH ASDIRECTED PRN PRN Reason: Itching Naloxone HCl (Narcan) 0.1 mg IVPUSH ONETIME PRN PRN Reason: Respiratory Depression Stop: 03/14/19 09:49 Ondansetron HCl (Zofran) 4 mg IVPUSH Q4H PRN PRN Reason: Nausea/Vomiting Ondansetron HCl (Zofran) 4 mg IVPUSH Q4H PRN PRN Reason: Nausea/Vomiting Ondansetron HCl (Zofran) 4 mg IVPUSH Q6H PRN PRN Reason: Nausea Oxycodone/Acetaminophen (Percocet 325-5 Mg) 1 tab PO Q4H PRN PRN Reason: Pain (moderate 4-6) Oxycodone/Acetaminophen (Percocet 325-5 Mg) 2 tab PO Q4H PRN PRN Reason: Pain (moderate 4-6) Oxycodone/Acetaminophen (Percocet 325-5 Mg) 2 tab PO Q6H PRN PRN Reason: Pain (moderate 4-6) Simethicone (Simethicone) 160 mg PO QID [facility] Last Admin: 03/14/19 06:00 Dose: Not Given Sodium Chloride (Saline Flush) 10 ml FLUSH ASDIRECTED PRN PRN Reason: Keep Vein Open Sodium Chloride (Saline Flush) 2.5 ml FLUSH ASDIRECTED PRN PRN Reason: Keep Vein Open Sodium Chloride (Normal Saline) 10 ml IV ASDIRECTED PRN PRN Reason: IV Use Discontinued Medications Cefazolin Sodium (Ancef) Confirm Administered Dose 2 gm .ROUTE .STK-MED ONE Stop: 03/13/19 07:26 Citric Acid/Sodium Citrate (Bicitra Solution) 30 ml PO ONETIME ONE Stop: 03/13/19 05:46 Last Admin: 03/13/19 07:43 Dose: 30 ml Ephedrine Sulfate (Ephedrine Sulfate) Confirm Administered Dose 50 mg .ROUTE .STK-MED ONE Stop: 03/13/19 07:26 Sodium Chloride (Normal Saline) Confirm Administered Dose 40 mls @ as directed .ROUTE .STK-MED ONE Stop: 03/13/19 07:26 Morphine Sulfate (Duramorph Pf) Confirm Administered Dose 10 mg .ROUTE .STK-MED ONE Stop: 03/13/19 07:31 Ondansetron HCl (Zofran) Confirm Administered Dose 4 mg .ROUTE .STK-MED ONE Stop: 03/13/19 07:26 Oxytocin (Pitocin) Confirm Administered Dose 30 unit .ROUTE .STK-MED ONE Stop: 03/13/19 07:26 - Interaction Support Person: Significant Other - Recovery Exam Fundal Tone: Firm Fundal Level: 2 Fingerbreadths Below Umbilicus Fundal Placement: Midline Lochia Amount: Scant Lochia Color: Rubra/Red Perineum Description: Intact, Minimal Bruising/Swelling Episiotomy/Laceration: None Bladder Status: Voiding Urinary Elimination: Voided - Exam General: Alert, Oriented Lungs: Normal Respiratory Effort Cardiovascular: Regular Rate, Regular Rhythm GI/Abdominal Exam: Normal Bowel Sounds, Soft Extremities: Pedal Edema (trace). No: Jay's Sign Skin: Warm, Dry, Intact Wound/Incisions: Healing Well, No Drainage. No: Erythema Neurological: No New Focal Deficit Psy/Mental Status: Alert, Normal Affect, Normal Mood - Problem List & Annotations (1) delivery delivered SNOMED Code(s): 118884918 Code(s): O82 - ENCOUNTER FOR DELIVERY WITHOUT INDICATION Status: Acute Priority: Low Current Visit: No Onset Date: ~04/07/17 - Problem List Review Problem List Initiated/Reviewed/Updated: Yes - My Orders Last 24 Hours: My Active Orders 03/13/19 08:51 Patient Status [ADT] Routine Ambulate [RC] PER UNIT ROUTINE Communication Order [RC] PER UNIT ROUTINE Communication Order [RC] PER UNIT ROUTINE Communication Order [RC] Per Unit Routine Intake and Output [RC] Q4H May Shower [RC] ASDIRECTED Notify Provider Intake and Out [RC] ASDIRECTED Notify Provider Vital Signs [RC] ASDIRECTED RT Incentive Spirometry [RC] Q2HWA Vital Signs [RC] PER UNIT ROUTINE Acetaminophen/oxyCODONE [Percocet 325-5 MG] 1 tab PO Q4H PRN Acetaminophen/oxyCODONE [Percocet 325-5 MG] 2 tab PO Q4H PRN Alum Hydrox/Mag Hydrox/Simeth [Mag-Al Plus] 30 ml PO Q8H PRN Bisacodyl [Dulcolax] 10 mg RECTAL ONETIME PRN Ibuprofen [Motrin] 800 mg PO Q8H PRN Lanolin [Lansinoh HPA] See Dose Instructions TOP ASDIRECTED PRN Ondansetron [Zofran] 4 mg IVPUSH Q4H PRN diphenhydrAMINE [Benadryl] 25 mg IVPUSH Q6H PRN Abdominal Binder [OM.PC] Routine Assess Lochia [WOMSER] Per Unit Routine Assess Uterine Involution [WOMSER] Per Unit Routine Breast Pump [WOMSER] Per Unit Routine Heat Therapy [OM.PC] Routine Ice Therapy [OM.PC] Routine Peripheral IV Discontinue [OM.PC] Routine Sequential Compression Device [OM.PC] Per Unit Routine 03/13/19 08:52 Antiembolic Devices [RC] PER UNIT ROUTINE 03/13/19 09:00 Docusate Sodium [Colace] 100 mg PO BID Ketorolac [Toradol] 30 mg IVPUSH Q6H Lactated Ringers [Ringers, Lactated] 1,000 ml IV ASDIRECTED 03/13/19 12:00 Simethicone 160 mg PO QID 03/13/19 Lunch Regular Diet [DIET] - Assessment Assessment:: POD 1 status post repeat c section - Plan Plan:: Doing well overall, continue postoperative cares. Ambulate halls--is voiding without difficulty. Plan discharge tomorrow if remains stable.
[2019-03-14] MEDS: Docusate Sodium 100 MG Cap PO SCH ×2 (09:19→20:43)
[2019-03-14] MEDS: Ibuprofen 800 MG Tab PO PRN ×2 (15:42→23:44)
[2019-03-15] MEDS: Simethicone 80 MG Tab.Chew PO SCH ×3 (01:47→07:50)
--- NOTE | 2019-03-15 07:30 | PCM.PNPP ---
- General Info Date of Service: 03/15/19 Subjective Update: 23 yo P2 s/p POD2 , ambulating , voiding and tolerating regular diet Functional Status: Reports: Pain Controlled, Tolerating Diet, Ambulating, Urinating - Review of Systems General: Reports: No Symptoms HEENT: Reports: No Symptoms Pulmonary: Reports: No Symptoms Cardiovascular: Reports: No Symptoms Gastrointestinal: Reports: No Symptoms Genitourinary: Reports: No Symptoms Musculoskeletal: Reports: No Symptoms Skin: Reports: No Symptoms Neurological: Reports: No Symptoms Psychiatric: Reports: No Symptoms - General Info Date of Service: 03/15/19 - Patient Data Vital Signs - Most Recent: Last Vital Signs Temp 36.0 C 03/15/19 04:10 Pulse 78 03/15/19 04:10 Resp 16 03/15/19 04:10 BP 120/65 03/15/19 04:10 Pulse Ox 95 03/15/19 04:10 Weight - Most Recent: 80.739 kg I&O - Last 24 Hours: Intake & Output 03/14/19 03/15/19 03/15/19 22:59 06:59 14:59 Intake Total 700 Balance 700 Med Orders - Current: Current Medications Al Hydroxide/Mg Hydroxide (Mag-Al Plus) 30 ml PO Q8H PRN PRN Reason: Heartburn Bisacodyl (Dulcolax) 10 mg RECTAL ONETIME PRN PRN Reason: Constipation Diphenhydramine HCl (Benadryl) 25 mg IVPUSH Q6H PRN PRN Reason: Itching or Nausea Docusate Sodium (Colace) 100 mg PO BID [facility] Last Admin: 03/14/19 20:43 Dose: 100 mg Emollient Ointment (Lansinoh Hpa) 0 gm TOP ASDIRECTED PRN PRN Reason: Sore Nipples Fentanyl (Sublimaze) 50 mcg IVPUSH Q1H PRN PRN Reason: Pain (severe 7-10) Lactated Ringer's (Ringers, Lactated) 1,000 mls @ 500 mls/hr IV BOLUS [facility] Last Admin: 03/13/19 07:50 Dose: 500 mls/hr Oxytocin/Sodium Chloride (Oxytocin 30 Unit/500 Ml-Ns) 30 unit in 500 mls @ 250 mls/hr IV TITRATE [facility] Lactated Ringer's (Ringers, Lactated) 1,000 mls @ 125 mls/hr IV ASDIRECTED [facility] Last Admin: 03/13/19 18:42 Dose: 125 mls/hr Ibuprofen (Motrin) 800 mg PO Q8H PRN PRN Reason: mild pain or fever Last Admin: 03/14/19 23:44 Dose: 800 mg Nalbuphine HCl (Nubain) 5 mg IVPUSH ASDIRECTED PRN PRN Reason: Itching Ondansetron HCl (Zofran) 4 mg IVPUSH Q4H PRN PRN Reason: Nausea/Vomiting Ondansetron HCl (Zofran) 4 mg IVPUSH Q4H PRN PRN Reason: Nausea/Vomiting Ondansetron HCl (Zofran) 4 mg IVPUSH Q6H PRN PRN Reason: Nausea Oxycodone/Acetaminophen (Percocet 325-5 Mg) 1 tab PO Q4H PRN PRN Reason: Pain (moderate 4-6) Last Admin: 03/14/19 23:45 Dose: 1 tab Oxycodone/Acetaminophen (Percocet 325-5 Mg) 2 tab PO Q4H PRN PRN Reason: Pain (moderate 4-6) Oxycodone/Acetaminophen (Percocet 325-5 Mg) 2 tab PO Q6H PRN PRN Reason: Pain (moderate 4-6) Simethicone (Simethicone) 160 mg PO QID [facility] Last Admin: 03/15/19 02:13 Dose: 160 mg Sodium Chloride (Saline Flush) 10 ml FLUSH ASDIRECTED PRN PRN Reason: Keep Vein Open Sodium Chloride (Saline Flush) 2.5 ml FLUSH ASDIRECTED PRN PRN Reason: Keep Vein Open Sodium Chloride (Normal Saline) 10 ml IV ASDIRECTED PRN PRN Reason: IV Use Discontinued Medications Cefazolin Sodium (Ancef) Confirm Administered Dose 2 gm .ROUTE .STK-MED ONE Stop: 03/13/19 07:26 Citric Acid/Sodium Citrate (Bicitra Solution) 30 ml PO ONETIME ONE Stop: 03/13/19 05:46 Last Admin: 03/13/19 07:43 Dose: 30 ml Diphenhydramine HCl (Benadryl) 25 mg IVPUSH Q4H PRN PRN Reason: Itching Stop: 03/14/19 09:49 Ephedrine Sulfate (Ephedrine Sulfate) Confirm Administered Dose 50 mg .ROUTE .STK-MED ONE Stop: 03/13/19 07:26 Sodium Chloride (Normal Saline) Confirm Administered Dose 40 mls @ as directed .ROUTE .STK-MED ONE Stop: 03/13/19 07:26 Ketorolac Tromethamine (Toradol) 30 mg IVPUSH Q6H [facility] Stop: 03/14/19 09:01 Last Admin: 03/14/19 09:19 Dose: 30 mg Morphine Sulfate (Duramorph Pf) Confirm Administered Dose 10 mg .ROUTE .STK-MED ONE Stop: 03/13/19 07:31 Naloxone HCl (Narcan) 0.1 mg IVPUSH ONETIME PRN PRN Reason: Respiratory Depression Stop: 03/14/19 09:49 Ondansetron HCl (Zofran) Confirm Administered Dose 4 mg .ROUTE .STK-MED ONE Stop: 03/13/19 07:26 Oxytocin (Pitocin) Confirm Administered Dose 30 unit .ROUTE .STK-MED ONE Stop: 03/13/19 07:26 - Infant Interaction Support Person: Significant Other - Recovery Exam Fundal Tone: Firm Fundal Level: 3 Fingerbreadths Below Umbilicus Fundal Placement: Midline Lochia Amount: Scant Lochia Color: Rubra/Red Perineum Description: Intact, Minimal Bruising/Swelling Episiotomy/Laceration: None Bladder Status: Voiding Urinary Elimination: Voided - Exam General: Alert HEENT: Pupils Equal Lungs: Clear to Auscultation Cardiovascular: Regular Rate, Regular Rhythm GI/Abdominal Exam: Normal Bowel Sounds Extremities: Normal Inspection Wound/Incisions: Dressing Dry and Intact Neurological: No New Focal Deficit Psy/Mental Status: Alert - Problem List & Annotations (1) delivery delivered SNOMED Code(s): 023833214 Code(s): O82 - ENCOUNTER FOR DELIVERY WITHOUT INDICATION Status: Acute Priority: Low Current Visit: No Onset Date: ~04/07/17 - Problem List Review Problem List Initiated/Reviewed/Updated: Yes - Assessment Assessment:: 23 yo P2 s/p POD2 , ambulating , voiding and tolerating regular diet - Plan Plan:: Discharge home today .
[2019-03-15] MEDS: Ibuprofen 800 MG Tab PO PRN (07:50)
[2019-03-15 11:20] VITALS: BP 121/82
== END 2019-03-15 12:30 | disposition home or self-care (01) | DRG 540 ==
LOC: MW.OB 03-13 05:16 → UNDOADMIN 03-13 05:16 → MW.OB 03-13 05:50
PROVIDERS: ADMIT Obstetrics & Gynecology; ATTEND Obstetrics & Gynecology
PROC: 10D00Z1 Extraction of Products of Conception, Low, Open Approach (ICD-10-PCS; principal; 2019-03-13)
DX: O34.219 Maternal care for unspecified type scar from previous cesarean delivery (principal); O99.284 Endocrine, nutritional and metabolic diseases complicating childbirth; E03.9 Hypothyroidism, unspecified; Z3A.39 39 weeks gestation of pregnancy; Z37.0 Single live birth
CPT/HCPCS: 36415; 59025; 82803; 85014; 85018; 85027; A9270-GY; J0690; J1885; J2270; J2405; J2590; J7120

== ENCOUNTER 2019-05-10 18:42 | Emergency (ER) | payer BC, OTHER ==
[2019-05-10] MEDS ORDERED: Sodium Chloride 0.9% 2.5 ML Syringe FLUSH PRN (19:16)
[2019-05-10] MEDS ORDERED: Ketorolac 30 MG/ML SDV IVPUSH ONE (19:16)
[2019-05-10] MEDS ORDERED: diphenhydrAMINE 50 MG/ML SDV IVPUSH ONE (19:16)
[2019-05-10] MEDS ORDERED: Ondansetron 4 MG/2 ML SDV IVPUSH ONE (19:16)
[2019-05-10] MEDS ORDERED: Sodium Chloride 0.9% 10 ML Syringe FLUSH PRN (19:16)
[2019-05-10] MEDS ORDERED: methylPREDNISolone Sodium Succinate 125 MG/2 ML SDV IVPUSH ONE (19:16)
[2019-05-10] MEDS ORDERED: Sodium Chloride 0.9% 1,000 ML IV ONE (19:16)
--- NOTE | 2019-05-10 19:22 | EDM.PDOC ---
ED HPI GENERAL MEDICAL PROBLEM - General Chief Complaint: Cardiovascular Problem Stated Complaint: PT HAS HEADACHE Time Seen by Provider: 05/10/19 19:03 - History of Present Illness INITIAL COMMENTS - FREE TEXT/NARRATIVE: HISTORY AND PHYSICAL: History of present illness: The patient is a healthy 23-year-old female who has a history of anxiety and hypothyroidism and had a the end of February and is not breast-feeding and presents with complaints of 3 episodes of brief palpitations and a frontal migraine headache. The patient says that she is currently on her menstrual cycle but no specific things trigger her migraine headaches and she has had them since she was younger and that diagnosis was made by a family practice physician. She has been on thyroid medication and it was just recently adjusted by Dr. Mensah and her new dose of thyroid meds was just started this morning. She also was just started on citalopram for anxiety and she took the first dose this morning. Patient says that earlier today she had 3 brief episodes of palpitations which only lasted a few minutes and it was not painful nor was she short of breath dizziness or lightheaded but she had some nausea. She has had a frontal headache all day associated with nausea but no vomiting in this location and character of the headache is typical of her migraines. She has no weakness numbness or tingling in her extremities no abdominal pain no headache neck or back pain and no fevers or chills. She's had no recent trauma and currently does not feel lightheaded or dizzy. Having any palpitations now but her last episode was very brief here in the ED she was waiting to be seen. She says that the headache that she is having currently is very classic in location and character and normally she just uses [id number] medications and they did not work. She says that in the past she was placed on a migraine medication that she tried once and it made her headache worse and she has never taken it again. She is eating and drinking normally and having normal urine output. She says she is currently on her menstrual cycle but this does not necessarily trigger her headaches and she does not identify any specific trigger that she does with her headaches as well. The patient does wear corrective lenses and contact lenses but she has had an exam within the last one year. The patient tells me that Dr. Mensah is the provider who is adjusting and monitoring her thyroid medications The patient also says that she started a ketosis supplement about 3 days ago which has caffeine in it Review of systems: As per history of present illness and below otherwise all systems reviewed and negative. Past medical history: As per history of present illness and as reviewed below otherwise noncontributory. Surgical history: As per history of present illness and as reviewed below otherwise noncontributory. Social history: No reported history of drug or alcohol abuse. Family history: As per history of present illness and as reviewed below otherwise noncontributory. Physical exam: General: Well-developed well-nourished female who is nontoxic and vital signs were noted by me HEENT: Atraumatic, normocephalic, pupils reactive, negative for conjunctival pallor or scleral icterus, mucous membranes moist, throat clear, neck supple, nontender, trachea midline. There is no cervical adenopathy or nuchal rigidity no sinus tenderness and no tenderness with palpation of the scalp on my exam. There is no thyromegaly appreciated Lungs: Clear to auscultation, breath sounds equal bilaterally, chest nontender. Heart: S1S2, regular rate and rhythm no overt murmurs Abdomen: Soft, nondistended, nontender. Negative for masses or hepatosplenomegaly. NABS Pelvis: Stable nontender. Genitourinary: Deferred. Rectal: Deferred. Extremities: Atraumatic, full range of motion and no edema Neurovascular unremarkable. Neuro: Awake, alert, oriented. Cranial nerves II through XII unremarkable. Cerebellum unremarkable. Motor and sensory unremarkable throughout. Exam nonfocal. Diagnostics: EKG CBC CMP UA with reflex TSH Therapeutics: IV fluids Zofran Toradol Benadryl Solu-Medrol I discussed with the patient and her mother bedside that with her new dosing of thyroid medications and introduction of a new anxiety med is the likely cause of her episodes of palpitation and may have triggered her migraine headache. We will go ahead and do a workup with respect to her palpitations and I will treat her migraine headache. I've advised the patient to stop using the supplement that she started 3 days ago that has caffeine in it until her thyroid medications are fully adjusted Patient is telling us that she no longer has a headache. I discussed with her and mother bedside her TSH level and as today is the first day of her new dosing I have advised her to keep in touch with Dr. Mensah about any symptoms as she may want to move her blood work sooner to reevaluate her thyroid on this new dose. She is aware that it is challenging to interpret that in light of the new dose only started today. Her blood work is scheduled for May 29. She states understanding Impression: Episodic palpitations, likely secondary to new dosing of medications and new medication along with caffeine supplementation; migraine headache with history of same, resolved Definitive disposition and diagnosis as appropriate pending reevaluation and review of above. migraine Pain Score (Numeric/FACES): 6 - Related Data Allergies Allergy/AdvReac Type Severity Reaction Status Date / Time No Known Allergies Allergy Verified 03/06/19 10:08 Home Meds: Home Meds Levothyroxine Sodium [Synthroid] 50 mcg PO DAILY 03/06/19 [History] Citalopram [Citalopram HBr] 20 mg PO DAILY 05/10/19 [History] Past Medical History HEENT 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: None Other HEENT History: wears glasses/contacts Cardiovascular 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: None Respiratory 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: None Gastrointestinal 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: GERD Genitourinary 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: None [employer] 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: Musculoskeletal 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: None Other Musculoskeletal History: hx fx left arm & rt foot Neurological 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: None Psychiatric 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: None Endocrine/Metabolic 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: Hypothyroidism, Obesity/BMI 30+ Hematologic 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: Anemia Immunologic 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: None Oncologic (Cancer) 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: None Dermatologic 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: None - Infectious Disease History Infectious Disease 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: None - Past Surgical History Head Surgeries/Procedures: Reports: None HEENT Surgical 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: Oral Surgery, Tonsillectomy, Other (See Below) Cardiovascular Surgical 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: None Respiratory Surgical 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: None Female Surgical 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: Section Neurological Surgical 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: None Oncologic Surgical 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: None Dermatological Surgical 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: None Social & Family History - Family History Family Medical History: Noncontributory Cardiac: Reports: Afib, Hypertension, Stent Respiratory: Reports: Asthma : Reports: Renal Disease/Insufficiency OBGYN: Reports: Musculoskeletal: Reports: RA Endocrine/Metabolic: Reports: Diabetes, Type I, Hypothyroidism, Other (See Below ) Other Endocrine/Metabolic Family History: Hoshimoto Oncologic: Reports: Pancreatic - Tobacco Use Smoking Status *Q: Never Smoker - Caffeine Use Caffeine Use: Reports: Coffee, Energy Drinks, Soda, Tea - Recreational Drug Use Recreational Drug Use: No ED ROS GENERAL - Review of Systems Review Of Systems: ROS reveals no pertinent complaints other than HPI. ED EXAM, GENERAL - Physical Exam Exam: See Below (See dictation) Course - Vital Signs Last Recorded V/S: Last Vital Signs Temp 36.2 C 05/10/19 18:51 Pulse 76 05/10/19 18:51 Resp 16 05/10/19 18:51 BP 137/76 05/10/19 18:51 Pulse Ox 98 05/10/19 18:51 - Orders/Labs/Meds Orders: Active Orders 24 hr Category Date Time Status EKG Documentation Completion [RC] STAT Care 05/10/19 19:15 Active UA RFX TOOTIE AND CULT IF INDIC [URIN] Stat Lab 05/10/19 20:10 Received Sodium Chloride 0.9% [Saline Flush] Med 05/10/19 19:16 Active 10 ml FLUSH ASDIRECTED PRN Sodium Chloride 0.9% [Saline Flush] Med 05/10/19 19:16 Active 2.5 ml FLUSH ASDIRECTED PRN Saline Lock Insert [OM.PC] Stat Oth 05/10/19 19:15 Ordered Medication Orders Sodium Chloride (Saline Flush) 10 ml FLUSH ASDIRECTED PRN PRN Reason: Keep Vein Open Sodium Chloride (Saline Flush) 2.5 ml FLUSH ASDIRECTED PRN PRN Reason: Keep Vein Open Labs: Laboratory Tests 05/10/19 05/10/19 Range/Units 19:35 19:35 WBC 6.93 (4.0-11.0) K/uL RBC 5.11 (4.30-5.90) M/uL Hgb 13.3 (12.0-16.0) g/dL Hct 40.3 (36.0-46.0) % MCV 78.9 L (80.0-98.0) fL MCH 26.0 L (27.0-32.0) pg MCHC 33.0 (31.0-37.0) g/dL RDW Std Deviation 41.8 (28.0-62.0) fl RDW Coeff of Mynor 15 (11.0-15.0) % Plt Count 266 (150-400) K/uL MPV 9.30 (7.40-12.00) fL Neut % (Auto) 63.2 (48.0-80.0) % Lymph % (Auto) 28.3 (16.0-40.0) % Anderson % (Auto) 8.1 (0.0-15.0) % Eos % (Auto) 0.3 (0.0-7.0) % Baso % (Auto) 0.1 (0.0-1.5) % Neut # (Auto) 4.4 (1.4-5.7) K/uL Lymph # (Auto) 2.0 (0.6-2.4) K/uL Anderson # (Auto) 0.6 (0.0-0.8) K/uL Eos # (Auto) 0.0 (0.0-0.7) K/uL Baso # (Auto) 0.0 (0.0-0.1) K/uL Nucleated RBC % 0.0 /100WBC Nucleated RBCs # 0 K/uL Sodium 139 (136-145) mmol/L Potassium 3.1 L (3.5-5.1) mmol/L Chloride 101 (98-107) mmol/L Carbon Dioxide 25.6 (21.0-32.0) mmol/L BUN 13 (7.0-18.0) mg/dL Creatinine 0.7 (0.6-1.0) mg/dL Est Cr Clr Drug Dosing 95.93 mL/min Estimated GFR (MDRD) > 60.0 ml/min Glucose 81 (74-106) mg/dL Calcium 10.8 H (8.5-10.1) mg/dL Total Bilirubin 0.5 (0.2-1.0) mg/dL AST 26 (15-37) IU/L ALT 41 (14-63) IU/L Alkaline Phosphatase 63 (46-116) U/L Total Protein 8.1 (6.4-8.2) g/dL Albumin 4.3 (3.4-5.0) g/dL Globulin 3.8 (2.6-4.0) g/dL Albumin/Globulin Ratio 1.1 (0.9-1.6) TSH 3rd Generation 0.01 L (0.36-3.74) uIU/mL Meds: Medications Generic Name Dose Route Start Last Admin Trade Name Freq PRN Reason Stop Dose Admin Sodium Chloride 10 ml 05/10/19 19:16 Saline Flush FLUSH ASDIRECTED PRN Keep Vein Open Sodium Chloride 2.5 ml 05/10/19 19:16 Saline Flush FLUSH ASDIRECTED PRN Keep Vein Open Discontinued Medications Generic Name Dose Route Start Last Admin Trade Name Sage PRN Reason Stop Dose Admin Diphenhydramine HCl 50 mg 05/10/19 19:16 05/10/19 19:29 Benadryl IVPUSH 05/10/19 19:17 50 mg ONETIME ONE Administration Sodium Chloride 1,000 mls @ 999 mls/hr 05/10/19 19:16 05/10/19 19:29 Normal Saline IV 05/10/19 20:16 999 mls/hr STAT ONE Administration Ketorolac Tromethamine 30 mg 05/10/19 19:16 05/10/19 19:29 Toradol IVPUSH 05/10/19 19:17 30 mg ONETIME ONE Administration Methylprednisolone Sodium Succinate 125 mg 05/10/19 19:16 05/10/19 19:29 Solu-Medrol IVPUSH 05/10/19 19:17 125 mg ONETIME ONE Administration Ondansetron HCl 4 mg 05/10/19 19:16 05/10/19 19:29 Zofran IVPUSH 05/10/19 19:17 4 mg ONETIME ONE Administration Departure - Departure Time of Disposition: 20:36 Disposition: Home, Self-Care 01 Condition: Good Clinical Impression: Palpitations Migraine headache Qualifiers: Migraine type: unspecified Status migrainosus presence: without status migrainosus Intractability: not intractable Qualified Code(s): G43.909 - Migraine, unspecified, not intractable, without status migrainosus Referrals: PCP,None [Primary Care Provider] - Forms: ED Department Discharge Additional Instructions: The following information is given to patients seen in the emergency department who are being discharged to home. This information is to outline your options for follow-up care. We provide all patients seen in our emergency department with a follow-up referral. The need for follow-up, as well as the timing and circumstances, are variable depending upon the specifics of your emergency department visit. If you don't have a primary care physician on staff, we will provide you with a referral. We always advise you to contact your personal physician following an emergency department visit to inform them of the circumstance of the visit and for follow-up with them and/or the need for any referrals to a consulting specialist. The emergency department will also refer you to a specialist when appropriate. This referral assures that you have the opportunity for followup care with a specialist. All of these measure are taken in an effort to provide you with optimal care, which includes your followup. Under all circumstances we always encourage you to contact your private physician who remains a resource for coordinating your care. When calling for followup care, please make the office aware that this follow-up is from your recent emergency room visit. If for any reason you are refused follow-up, please contact the [facility] emergency department at and ask to speak to the emergency department charge nurse. [address] [address] Continue your home medication and please do not take the ketosis supplement that you have started. Push hydration and rest. Please connect with Dr. Mensah in the clinic and advised her of any continuation of these symptoms of palpitations as she may want to move your blood testing for your thyroid sooner. Use [id number] Tylenol or ibuprofen for headache pain and return to ER as needed and as discussed - My Orders Last 24 Hours: My Active Orders 05/10/19 19:15 EKG Documentation Completion [RC] STAT Saline Lock Insert [OM.PC] Stat 05/10/19 19:16 Sodium Chloride 0.9% [Saline Flush] 10 ml FLUSH ASDIRECTED PRN Sodium Chloride 0.9% [Saline Flush] 2.5 ml FLUSH ASDIRECTED PRN 05/10/19 20:10 UA RFX TOOTIE AND CULT IF INDIC [URIN] Stat - Assessment/Plan Last 24 Hours: My Active Orders 05/10/19 19:15 EKG Documentation Completion [RC] STAT Saline Lock Insert [OM.PC] Stat 05/10/19 19:16 Sodium Chloride 0.9% [Saline Flush] 10 ml FLUSH ASDIRECTED PRN Sodium Chloride 0.9% [Saline Flush] 2.5 ml FLUSH ASDIRECTED PRN 05/10/19 20:10 UA RFX TOOTIE AND CULT IF INDIC [URIN] Stat
[2019-05-10 20:26] LABS: BLOOD UREA NITROGEN,BUN 13 mg/dL (7.0-18.0); CARBON DIOXIDE,CO2 25.6 mmol/L (21.0-32.0); CHLORIDE,CL 101 mmol/L (98-107); GLUCOSE RANDOM 81 mg/dL (74-106); POTASSIUM,K 3.1 mmol/L (3.5-5.1); SODIUM,NA 139 mmol/L (136-145)
[2019-05-10 20:56] VITALS: BP 115/55; PULSE 79
== END 2019-05-10 20:54 | disposition home or self-care (01) ==
LOC: MW.ED 18:42
DX: G43.909 Migraine, unspecified, not intractable, without status migrainosus (principal); R00.2 Palpitations; E03.9 Hypothyroidism, unspecified; F41.9 Anxiety disorder, unspecified; Z79.899 Other long term (current) drug therapy
CPT/HCPCS: 80053; 81001; 84443; 85025; 93005; 96361; 96374; 96375; 99285; J1200; J1885; J2405; J2930; J7040

== ENCOUNTER 2022-05-10 05:51 | Inpatient (IN) | payer BC, OTHER ==
[~2022-05-10 05:51] MED LIST: Citric Acid/Sodium Citrate Solution 30 ML Cup PO ONE; Sodium Chloride 0.9% 10 ML Syringe FLUSH PRN; Sodium Chloride 0.9% 2.5 ML Syringe FLUSH PRN; Sodium Chloride 0.9% 20 ML SDV IV PRN; ceFAZolin 1 GM in Premix Bag 1 BAG IV ONE
[2022-05-10] MEDS ORDERED: Oxytocin/0.9 % Sodium Chloride 30 UNIT/500 ML BAG IV SCH (06:00)
[2022-05-10] MEDS: Lactated Ringers 1,000 ML IV SCH ×4 (06:24→14:12)
[2022-05-10] MEDS ORDERED: ceFAZolin 1 GM Vial ONE (07:12)
[2022-05-10] MEDS ORDERED: Dexmedetomidine 200 MCG/2 ML SDV ONE (07:12)
[2022-05-10] MEDS ORDERED: Dexamethasone 4 MG/ML 5 ML MDV ONE (07:12)
[2022-05-10] MEDS ORDERED: Water For Injection, Sterile 40 ML ONE (07:12)
[2022-05-10] MEDS ORDERED: Ropivacaine 0.5% 5 MG/ML 30 ML SDV ONE (07:12)
[2022-05-10] MEDS ORDERED: Ondansetron 4 MG/2 ML SDV ONE (07:12)
[2022-05-10] MEDS ORDERED: Oxytocin 10 Units/1 ML SDV ONE (07:12)
[2022-05-10] MEDS ORDERED: Morphine PF 10 MG/10 ML SDV ONE (07:12)
[2022-05-10] MEDS ORDERED: Phenylephrine HCl In 0.9% NaCl 1 MG/10 ML Vial ONE (07:12)
[2022-05-10] MEDS ORDERED: Misoprostol 200 MCG Tab PO PRN (07:54)
[2022-05-10] MEDS ORDERED: Tranexamic Acid 1,000 MG in Sodium Chloride 0.9% 100 ML IV PRN ×2 (07:54→09:07)
[2022-05-10] MEDS ORDERED: Methylergonovine 0.2 MG/1 ML Amp IM PRN ×2 (07:54→09:07)
[2022-05-10] MEDS ORDERED: Carboprost Tromethamine 250 MCG/1 ML Amp IM PRN (07:54)
[2022-05-10] MEDS ORDERED: Lidocaine 1% 20 ML MDV ONE (08:15)
[2022-05-10] MEDS ORDERED: Aluminum Hydroxide/Magnesium Hydroxide/Simethicone XS Susp 30 ML Cup PO PRN (09:07)
[2022-05-10] MEDS ORDERED: Misoprostol 200 MCG Tab RECTAL PRN (09:07)
[2022-05-10] MEDS ORDERED: diphenhydrAMINE 50 MG/ML SDV IVPUSH PRN ×2 (09:07→09:40)
[2022-05-10] MEDS ORDERED: Bisacodyl 10 MG Supp RECTAL PRN (09:07)
[2022-05-10] MEDS ORDERED: Lanolin 100% Cream 7 GM Tube TOP PRN (09:07)
[2022-05-10] MEDS ORDERED: Acetaminophen/oxyCODONE 325-5 MG Tab PO PRN (09:07)
[2022-05-10] MEDS ORDERED: Oxytocin 10 Units/1 ML SDV IM PRN (09:07)
[2022-05-10] MEDS ORDERED: Ondansetron 4 MG/2 ML SDV IVPUSH PRN ×3 (09:07→09:40)
[2022-05-10] MEDS ORDERED: Naloxone 0.4 MG/ML SDV IVPUSH PRN ×2 (09:40)
[2022-05-10] MEDS ORDERED: ePHEDrine 50 MG/ML SDV IVPUSH PRN (09:40)
[2022-05-10] MEDS ORDERED: Albuterol 0.083% 2.5 MG/3 ML Neb Soln NEB PRN (09:40)
[2022-05-10] MEDS ORDERED: fentaNYL 100 MCG/2 ML SDV IVPUSH PRN (09:40)
[2022-05-10] MEDS ORDERED: Nalbuphine HCl 10 MG/ 1ML Amp IVPUSH PRN (09:43)
[2022-05-10] MEDS: Ketorolac 30 MG/ML SDV IVPUSH SCH ×3 (09:43→21:29)
[2022-05-10] MEDS ORDERED: Phenylephrine HCl In 0.9% NaCl 1 MG/10 ML Vial IVPUSH SCH (09:45)
[2022-05-10] MEDS: Simethicone 80 MG Tab.Chew PO SCH ×3 (12:23→23:50)
[2022-05-10] MEDS: Docusate Sodium 100 MG Cap PO SCH (21:29)
[2022-05-11] MEDS: Ketorolac 30 MG/ML SDV IVPUSH SCH ×2 (03:31→09:46)
[2022-05-11] MEDS: Simethicone 80 MG Tab.Chew PO SCH ×3 (05:57→23:46)
[2022-05-11] MEDS ORDERED: Levothyroxine 50 MCG Tab PO SCH (07:30)
[2022-05-11] MEDS: Docusate Sodium 100 MG Cap PO SCH ×2 (09:21→20:45)
[2022-05-11] MEDS ORDERED: Iron Sucrose Complex 200 MG in Sodium Chloride 0.9% 100 ML IV ONE (10:45)
[2022-05-11] MEDS: Acetaminophen/oxyCODONE 325-5 MG Tab PO PRN ×3 (11:45→23:56)
[2022-05-11] MEDS: Ibuprofen 800 MG Tab PO PRN (20:45)
[2022-05-12] MEDS: Simethicone 80 MG Tab.Chew PO SCH ×4 (05:57→18:05)
[2022-05-12] MEDS: Ibuprofen 800 MG Tab PO PRN ×2 (06:05→18:05)
[2022-05-12] MEDS: Docusate Sodium 100 MG Cap PO SCH (08:54)
[2022-05-12] MEDS: Acetaminophen/oxyCODONE 325-5 MG Tab PO PRN ×2 (09:13→14:13)
[2022-05-12 16:31] VITALS: BP 134/70; PULSE 72
== END 2022-05-12 19:33 | disposition home or self-care (01) | DRG 540 ==
LOC: MW.OB 05:51
PROVIDERS: ADMIT Obstetrics & Gynecology; ATTEND Obstetrics & Gynecology
PROC: 10D00Z1 Extraction of Products of Conception, Low, Open Approach (ICD-10-PCS; principal; 2022-05-10)
DX: O34.211 Maternal care for low transverse scar from previous cesarean delivery (principal); Z37.0 Single live birth; O99.284 Endocrine, nutritional and metabolic diseases complicating childbirth; E03.9 Hypothyroidism, unspecified; Z20.822 Contact with and (suspected) exposure to COVID-19; Z3A.39 39 weeks gestation of pregnancy
CPT/HCPCS: 01961; 36415; 59025; 64488; 82803; 85014; 85018; 85027; 86592; 86803; 86850; 86900; 86901; A9270-GY; J0690; J1100; J1756; J1885; J2274; J2405; J2590; J2795; J3490; J7120; U0002

== ENCOUNTER 2022-09-10 14:27 | Emergency (ER) | payer BC, OTHER ==
[2022-09-10] MEDS ORDERED: Sodium Chloride 0.9% 2.5 ML Syringe FLUSH PRN (15:10)
[2022-09-10] MEDS ORDERED: Sodium Chloride 0.9% 10 ML Syringe FLUSH PRN (15:10)
[2022-09-10] MEDS ORDERED: Sodium Chloride 0.9% 1,000 ML IV ONE (15:10)
[2022-09-10] MEDS ORDERED: Ondansetron 4 MG/2 ML SDV IVPUSH ONE (15:10)
[2022-09-10 15:49] LABS: CARBON DIOXIDE,CO2 23.7 mmol/L (21.0-32.0); POTASSIUM,K 3.6 mmol/L (3.5-5.1)
[2022-09-10] MEDS ORDERED: Alum Hydro/Mag Hydro/Simeth XS 15 ML, Lidocaine 2% 5 ML PO ONE ×2 (17:30)
[2022-09-10 19:20] VITALS: BP 125/73; PULSE 87
== END 2022-09-10 19:13 | disposition home or self-care (01) ==
LOC: MW.ED 14:27
DX: K29.50 Unspecified chronic gastritis without bleeding (principal); E03.9 Hypothyroidism, unspecified; Z79.899 Other long term (current) drug therapy
CPT/HCPCS: 36415; 76705; 80053; 83690; 84703; 85025; 96361; 96374; 99284; A9270; J2405; J3490; J7030

== ENCOUNTER 2022-12-21 06:47 | Day surgery (SDC) | payer BC, OTHER ==
[~2022-12-21 06:47] MED LIST changes: -Citric Acid/Sodium Citrate Solution 30 ML Cup PO ONE; +Lactated Ringers 1,000 ML IV SCH; -Sodium Chloride 0.9% 10 ML Syringe FLUSH PRN; -Sodium Chloride 0.9% 2.5 ML Syringe FLUSH PRN; -Sodium Chloride 0.9% 20 ML SDV IV PRN; -ceFAZolin 1 GM in Premix Bag 1 BAG IV ONE
[2022-12-21] MEDS ORDERED: Naloxone 0.4 MG/ML SDV IVPUSH PRN (07:09)
[2022-12-21] MEDS ORDERED: Albuterol 0.083% 2.5 MG/3 ML Neb Soln NEB PRN (07:09)
[2022-12-21] MEDS ORDERED: Ondansetron 4 MG/2 ML SDV IVPUSH PRN (07:09)
[2022-12-21] MEDS ORDERED: droPERidol 5 MG/2 ML SDV IVPUSH PRN (07:09)
[2022-12-21] MEDS ORDERED: Morphine 2 MG/ML SYRINGE IVPUSH PRN (07:09)
[2022-12-21] MEDS ORDERED: HYDROmorphone 1 MG/ML Syringe IVPUSH PRN (07:09)
[2022-12-21] MEDS ORDERED: fentaNYL 50 MCG/ML SDV IVPUSH PRN (07:09)
[2022-12-21] MEDS ORDERED: Metoclopramide 10 MG/2 ML SDV IVPUSH PRN (07:09)
[2022-12-21] MEDS ORDERED: Propofol 200 MG/20 ML SDV ONE (07:27)
[2022-12-21] MEDS ORDERED: fentaNYL 100 MCG/2 ML SDV ONE (07:27)
[2022-12-21] MEDS ORDERED: propofoL 50 ML ONE (07:28)
[2022-12-21] MEDS ORDERED: Lidocaine 1% 5 ML VIAL ONE (07:31)
[2022-12-21] MEDS ORDERED: Ketorolac 30 MG/ML SDV ONE (07:31)
[2022-12-21] MEDS ORDERED: Dexamethasone 4 MG/ML 5 ML MDV ONE (07:31)
[2022-12-21] MEDS ORDERED: Dexmedetomidine 200 MCG/2 ML SDV ONE (07:31)
[2022-12-21] MEDS ORDERED: Ondansetron 4 MG/2 ML SDV ONE (07:31)
[2022-12-21 07:32] LABS: HEMATOCRIT 39.6 % (36.0-46.0); HEMOGLOBIN 12.9 g/dL (12.0-16.0); MEAN CORPUSCULAR HEMOGLOBIN 25.6 pg (27.0-32.0); MEAN CORPUSCULAR HGB CONC 32.6 g/dL (31.0-37.0); MEAN CORPUSCULAR VOLUME 78.7 fL (80.0-98.0); MEAN PLATELET VOLUME 9.7 fL (7.40-12.00); RED BLOOD CELL COUNT 5.03 M/uL (4.30-5.90)
[2022-12-21] MEDS ORDERED: Iodine/Potassium Iodide 5% Solution 14 ML Bottle ONE (07:32)
[2022-12-21] MEDS ORDERED: Lidocaine 1% 20 ML MDV ONE (07:33)
[2022-12-21] MEDS ORDERED: Lidocaine 1% with EPINEPHrine 1:100,000 20 ML MDV ONE (07:33)
[2022-12-21] MEDS ORDERED: Ferric Subsulfate Topical Soln 8 GM (8 ML) Bottle ONE (07:35)
[2022-12-21] MEDS ORDERED: Magnesium Sulfate (4.06 MEQ/ML) 5 GM/10 ML SDV ONE (08:03)
[2022-12-21 09:24] VITALS: BP 110/58; PULSE 65
== END 2022-12-21 09:16 | disposition home or self-care (01) ==
LOC: MW.SDS 06:47
PROVIDERS: ATTEND Obstetrics & Gynecology
DX: D06.1 Carcinoma in situ of exocervix (principal); E03.9 Hypothyroidism, unspecified; K21.9 Gastro-esophageal reflux disease without esophagitis; G43.909 Migraine, unspecified, not intractable, without status migrainosus; Z79.890 Hormone replacement therapy; Z79.899 Other long term (current) drug therapy; Z98.890 Other specified postprocedural states
CPT/HCPCS: 36415; 57522; 84703; 85027; A9270; J1100; J1885; J2405; J2704; J3010; J3475; J7120; 00940; J3490